=== PATIENT | female | born 1955 | race Caucasian/White ===

== ENCOUNTER 2019-02-10 17:52 | Inpatient (IN) ==
[2019-02-10] MEDS ORDERED: SODIUM CHLORIDE 0.9% 1,000 ML IV STA (18:53)
[2019-02-10 18:58] LABS: Apearance,Urine Slightly Hazy (Clear); Bacteria,Urine Occasional /HPF (Few); Bilirubin,Urine Negative (Negative); Blood, Urine Negative (Negative); Glucose,Urine (UA) Negative (Negative); Hyaline Casts,Urine 1 /LPF (0-3); Ketones,Urine 5 mg/dL (Negative); Mucus,Urine Occasional /LPF (Occasional); Nitrite,Urine Negative (Negative); Protein,Urine Negative; Squamous Epithelial Cell,Urine Few /HPF (0-10); Urine Color Amber (Yellow); Urine Specific Gravity 1.025 (1.001-1.035); WBC,Urine 1 /HPF (0-6)
[2019-02-10 19:10] LABS: Bilirubin,Total 2.5 MG/DL (0.2-1.0); Calcium 8.8 MG/DL (8.5-10.1); Osmolality,Calculated 275.7 MOS/KG (273-304); Total Protein 7.9 G/DL (6.4-8.3)
[2019-02-10 19:35] LABS: Basophils # 0.1 10*3/uL (0.0-0.2); Basophils % 0.6 % (0.0-0.8); Eosinophils # 0.3 10*3/uL (0.0-0.87); Eosinophils % 2.6 % (0.00-10.9); Hematocrit 32.2 VOL% (35.7-47.0); Hemoglobin 10.4 GM/DL (12.0-16.0); Immature Granulocytes % 0.9 %; Immature Granulocytes Absolute 0.09 #; Lymphocytes # 2.4 10*3/uL (1.4-4.0); Lymphocytes % 24.6 % (21.3-54.2); Mean Corpuscular HGB Conc 32.3 GM/DL (32-36); Mean Corpuscular Volume 101.6 FL (87-102); Mean Platelet Volume 10.7 FL (9.6-12.0); Monocytes % 8.6 % (1.7-12.7); Neutrophils % 62.7 % (38.7-73.9); Red Blood Count 3.17 MC/CUMM (3.8-5.5); Red Cell Distribution Width 14.6 % (9.3-17.3); White Blood Count 9.8 T/CUMM (4-12)
[2019-02-10 19:39] LABS: Platelet Count 3 T/CUMM (130-400)
[2019-02-10 19:52] LABS: Eosinophils 2 % (0-10); Lymphocytes 26 % (20-55); Segmented Neutrophils 64 % (50-85); Total Cells Counted 100
[2019-02-10 19:53] LABS: Hypochromasia 1+; Microcytosis Slight; Platelet Estimate Decreased
[2019-02-10] MEDS ORDERED: MORPHINE 4 MG/1 ML VIAL IV STA (20:25)
[2019-02-10] MEDS ORDERED: ONDANSETRON 4 MG/2 ML VIAL IV STA (20:25)
[2019-02-10] MEDS ORDERED: ONDANSETRON 4 MG/2 ML VIAL IV PRN (22:01)
[2019-02-10] MEDS ORDERED: DOCUSATE SODIUM 100 MG CAPSULE PO PRN (22:01)
[2019-02-10] MEDS ORDERED: diphenhydrAMINE CAP 25 MG CAPSULE PO PRN (22:14)
[2019-02-10] MEDS ORDERED: SIMVASTATIN 10 MG TABLET PO SCH (22:30)
[2019-02-10] MEDS ORDERED: NON-FORMULARY MEDICATION (Omeprazole 20 MG) PO SCH (22:30)
[2019-02-10] MEDS ORDERED: SODIUM CHLORIDE 0.9% 1,000 ML IV PRN (23:09)
[2019-02-10] MEDS: PANTOPRAZOLE 40 MG TABLET PO SCH (23:33)
[2019-02-10] MEDS: cephALEXin 500 MG CAPSULE PO SCH (23:33)
[2019-02-10] MEDS: tiZANidine 4 MG TABLET PO SCH (23:34)
[2019-02-10] MEDS: HYDROmorphone 2 MG/1 ML VIAL IV PRN (23:42)
[2019-02-11] MEDS: POTASSIUM CHLORIDE 20 MEQ TABLET PO PRN ×3 (00:35→04:37)
[2019-02-11 05:38] LABS: Basophils # 0.1 10*3/uL (0.0-0.2); Basophils % 0.9 % (0.0-0.8); Eosinophils # 0.2 10*3/uL (0.0-0.87); Eosinophils % 3.6 % (0.00-10.9); Hematocrit 28.2 VOL% (35.7-47.0); Hemoglobin 8.9 GM/DL (12.0-16.0); Immature Granulocytes % 1.4 %; Immature Granulocytes Absolute 0.09 #; Lymphocytes # 1.6 10*3/uL (1.4-4.0); Lymphocytes % 24.6 % (21.3-54.2); Mean Corpuscular HGB Conc 31.6 GM/DL (32-36); Mean Corpuscular Volume 104.1 FL (87-102); Monocytes % 8.8 % (1.7-12.7); Neutrophils % 60.7 % (38.7-73.9); Red Blood Count 2.71 MC/CUMM (3.8-5.5); Red Cell Distribution Width 14.8 % (9.3-17.3); White Blood Count 6.4 T/CUMM (4-12)
[2019-02-11 05:48] LABS: Platelet Count 5 T/CUMM (130-400)
[2019-02-11 05:56] LABS: Hypochromasia Slight; Microcytosis 1+; Platelet Estimate Decreased
[2019-02-11 05:57] LABS: Polychromasia Few
[2019-02-11] MEDS: cephALEXin 500 MG CAPSULE PO SCH (05:57)
[2019-02-11 05:59] LABS: Albumin 1.9 G/DL (3.4-5.0); Bilirubin,Total 2.6 MG/DL (0.2-1.0); Calcium 8.2 MG/DL (8.5-10.1); Osmolality,Calculated 280.3 MOS/KG (273-304); Risk Ratio 6.72; Total Protein 6.5 G/DL (6.4-8.3); VLDL CHOLESTEROL 18.6 MG/DL
[2019-02-11 06:55] LABS: Hepatitis B Core IgM Quant 0.09 Index; Hepatitis B Surface Ag Quant < 0.10 Index; Hepatitis B Surface Ag Result Negative (Negative); Hepatitis C Virus Ab Quant 0.15 Index; Hepatitis C Virus Ab Result Negative (Negative)
[2019-02-11 08:29] LABS: % Iron Saturation 56.3 % (18-50); Ferritin 273.9 ng/ml (8-252)
[2019-02-11 08:32] LABS: Folate 19.2 NG/ML (5.4-24.0); Vitamin B12 > 2000 PG/ML (211-911)
[2019-02-11 08:40] LABS: PT Patient Result 10.4 SECS; Partial Thromboplastin Time 30.3 SECS (0-40)
[2019-02-11] MEDS: CHOLECALCIFEROL 1,000 UNIT TABLET PO SCH (08:52)
[2019-02-11] MEDS: URSODIOL 300 MG CAPSULE PO SCH ×3 (08:52→20:20)
[2019-02-11] MEDS: PANTOPRAZOLE 40 MG TABLET PO SCH ×2 (08:52→20:20)
[2019-02-11] MEDS: CALCIUM (CARBONATE)/VITAMIN D 600 MG-400 UNIT TABLET PO SCH ×2 (08:52→17:24)
[2019-02-11] MEDS: DOCUSATE SODIUM 100 MG CAPSULE PO SCH (08:52)
[2019-02-11] MEDS: ASCORBIC ACID 500 MG TABLET PO SCH (08:52)
[2019-02-11] MEDS: CETIRIZINE 10 MG TABLET PO SCH (08:53)
[2019-02-11] MEDS: methylPREDNISolone SOD SUC 125 MG/2 ML VIAL IV SCH ×2 (08:54→20:20)
[2019-02-11] MEDS ORDERED: FERROUS SULFATE 325 MG TABLET PO SCH (09:00)
[2019-02-11] MEDS ORDERED: diphenhydrAMINE CAP 25 MG CAPSULE PO ONE (10:00)
[2019-02-11] MEDS ORDERED: SPIRONOLACTONE 50 MG TABLET PO SCH (11:00)
[2019-02-11] MEDS ORDERED: IMMUNE GLOBULIN 10% 20 GM, IMMUNE GLOBULIN 10% 10 GM in PREMIX 1 EACH IV ONE (11:00)
[2019-02-11] MEDS: FUROSEMIDE 20 MG TABLET PO SCH (11:59)
[2019-02-11] MEDS: HYDROmorphone 2 MG/1 ML VIAL IV PRN (12:28)
[2019-02-11] MEDS: tiZANidine 4 MG TABLET PO SCH (20:20)
[2019-02-12 05:55] LABS: Basophils % 0.2 % (0.0-0.8); Hematocrit 28.7 VOL% (35.7-47.0); Hemoglobin 9.3 GM/DL (12.0-16.0); Immature Granulocytes % 0.6 %; Immature Granulocytes Absolute 0.06 #; Lymphocytes % 10.7 % (21.3-54.2); Mean Corpuscular HGB Conc 32.4 GM/DL (32-36); Mean Corpuscular Volume 102.1 FL (87-102); Mean Platelet Volume 12.4 FL (9.6-12.0); Monocytes % 1.6 % (1.7-12.7); Neutrophils % 86.9 % (38.7-73.9); Red Blood Count 2.81 MC/CUMM (3.8-5.5); Red Cell Distribution Width 14.3 % (9.3-17.3); White Blood Count 9.5 T/CUMM (4-12)
[2019-02-12 06:00] LABS: Platelet Count 18 T/CUMM (130-400)
[2019-02-12 06:17] LABS: Anisocytosis 2+; Hypochromasia 2+; Microcytosis 2+; Platelet Estimate Decreased; Polychromasia Few
[2019-02-12 06:24] LABS: Albumin 1.9 G/DL (3.4-5.0); Bilirubin,Total 2.3 MG/DL (0.2-1.0); Calcium 8.7 MG/DL (8.5-10.1); Osmolality,Calculated 282.4 MOS/KG (273-304); Total Protein 7.3 G/DL (6.4-8.3)
[2019-02-12] MEDS ORDERED: methylPREDNISolone SOD SUC 125 MG/2 ML VIAL IV ONE (07:47)
[2019-02-12] MEDS ORDERED: SODIUM CHLORIDE 0.9% 1,000 ML IV PRN (07:48)
[2019-02-12] MEDS ORDERED: IMMUNE GLOBULIN 10% 20 GM in PREMIX 1 EACH IV ONE (09:00)
[2019-02-12] MEDS ORDERED: predniSONE 20 MG TABLET PO SCH (09:00)
[2019-02-12] MEDS: URSODIOL 300 MG CAPSULE PO SCH ×3 (09:34→20:36)
[2019-02-12] MEDS: FUROSEMIDE 20 MG TABLET PO SCH (09:34)
[2019-02-12] MEDS: DOCUSATE SODIUM 100 MG CAPSULE PO SCH (09:34)
[2019-02-12] MEDS: CHOLECALCIFEROL 1,000 UNIT TABLET PO SCH (09:38)
[2019-02-12] MEDS: CALCIUM (CARBONATE)/VITAMIN D 600 MG-400 UNIT TABLET PO SCH ×2 (09:38→16:14)
[2019-02-12] MEDS: SPIRONOLACTONE 50 MG TABLET PO SCH ×2 (09:39→20:36)
[2019-02-12] MEDS: ASCORBIC ACID 500 MG TABLET PO SCH (09:39)
[2019-02-12] MEDS: CETIRIZINE 10 MG TABLET PO SCH (09:41)
[2019-02-12] MEDS: PANTOPRAZOLE 40 MG TABLET PO SCH ×2 (10:14→20:36)
[2019-02-12] MEDS: HYDROmorphone 2 MG/1 ML VIAL IV PRN ×2 (16:21→23:47)
[2019-02-12] MEDS: tiZANidine 4 MG TABLET PO SCH (20:36)
[2019-02-13 06:12] LABS: Basophils % 0.1 % (0.0-0.8); Immature Granulocytes % 0.7 %; Immature Granulocytes Absolute 0.09 #; Lymphocytes # 1.3 10*3/uL (1.4-4.0); Lymphocytes % 9.8 % (21.3-54.2); Mean Corpuscular HGB Conc 32.1 GM/DL (32-36); Mean Corpuscular Volume 102.2 FL (87-102); Mean Platelet Volume 12.3 FL (9.6-12.0); Monocytes % 4.7 % (1.7-12.7); Neutrophils % 84.7 % (38.7-73.9); Red Blood Count 2.74 MC/CUMM (3.8-5.5); Red Cell Distribution Width 14.7 % (9.3-17.3); White Blood Count 13.3 T/CUMM (4-12)
[2019-02-13 06:14] LABS: Platelet Count 70 T/CUMM (130-400)
[2019-02-13 06:43] LABS: Microcytosis 1+
[2019-02-13 06:44] LABS: Platelet Estimate Decreased; Polychromasia Slight
[2019-02-13 06:45] LABS: Hypochromasia 1+
[2019-02-13 06:46] LABS: Calcium 8.6 MG/DL (8.5-10.1); Osmolality,Calculated 282.5 MOS/KG (273-304)
[2019-02-13] MEDS: SPIRONOLACTONE 50 MG TABLET PO SCH ×2 (09:27→21:50)
[2019-02-13] MEDS: ASCORBIC ACID 500 MG TABLET PO SCH (09:27)
[2019-02-13] MEDS: CALCIUM (CARBONATE)/VITAMIN D 600 MG-400 UNIT TABLET PO SCH ×2 (09:28→17:23)
[2019-02-13] MEDS: predniSONE 20 MG TABLET PO SCH (09:28)
[2019-02-13] MEDS: CHOLECALCIFEROL 1,000 UNIT TABLET PO SCH (09:28)
[2019-02-13] MEDS: URSODIOL 300 MG CAPSULE PO SCH ×3 (09:29→21:50)
[2019-02-13] MEDS: PANTOPRAZOLE 40 MG TABLET PO SCH ×2 (09:29→21:49)
[2019-02-13] MEDS: DOCUSATE SODIUM 100 MG CAPSULE PO SCH (09:29)
[2019-02-13] MEDS: FUROSEMIDE 20 MG TABLET PO SCH (09:29)
[2019-02-13] MEDS: CETIRIZINE 10 MG TABLET PO SCH (09:35)
[2019-02-13 15:53] LABS: Neutrophils,Peritoneal Fluid 36 %; RBC,Peritoneal Fluid 2051 T/CUMM
[2019-02-13] MEDS: tiZANidine 4 MG TABLET PO SCH (21:49)
[2019-02-14] MEDS: CETIRIZINE 10 MG TABLET PO SCH (08:13)
[2019-02-14] MEDS: FUROSEMIDE 20 MG TABLET PO SCH (08:13)
[2019-02-14] MEDS: CALCIUM (CARBONATE)/VITAMIN D 600 MG-400 UNIT TABLET PO SCH (08:14)
[2019-02-14] MEDS: PANTOPRAZOLE 40 MG TABLET PO SCH (08:14)
[2019-02-14] MEDS: DOCUSATE SODIUM 100 MG CAPSULE PO SCH (08:14)
[2019-02-14] MEDS: ASCORBIC ACID 500 MG TABLET PO SCH (08:14)
[2019-02-14] MEDS: CHOLECALCIFEROL 1,000 UNIT TABLET PO SCH (08:14)
[2019-02-14] MEDS: predniSONE 20 MG TABLET PO SCH (08:14)
[2019-02-14] MEDS: URSODIOL 300 MG CAPSULE PO SCH (08:14)
[2019-02-14] MEDS: SPIRONOLACTONE 50 MG TABLET PO SCH (08:15)
[2019-02-14 11:02] VITALS: BP 133/58
== END 2019-02-14 15:14 | disposition home or self-care (01) | DRG 813 ==
LOC: EDBD → N.EDINP 17:52 → N.ED 17:52 → N.3E 21:16
PROVIDERS: ADMIT Internal Medicine; ATTEND Internal Medicine

== ENCOUNTER 2019-11-01 07:09 | Inpatient (IN) ==
[2019-11-01] MEDS ORDERED: ONDANSETRON 4 MG/2 ML VIAL IV STA ×3 (07:45→11:27)
[2019-11-01] MEDS ORDERED: SODIUM CHLORIDE 0.9% 1,000 ML IV STA ×2 (07:45→12:15)
[2019-11-01 08:24] LABS: Basophils % 0.5 % (0.0-0.8); Eosinophils # 0.1 10*3/uL (0.0-0.87); Hematocrit 44.3 VOL% (35.7-47.0); Hemoglobin 14.6 GM/DL (12.0-16.0); Immature Granulocytes % 0.6 %; Immature Granulocytes Absolute 0.04 #; Lymphocytes # 0.5 10*3/uL (1.4-4.0); Lymphocytes % 8.6 % (21.3-54.2); Mean Corpuscular Volume 96.1 FL (87-102); Mean Platelet Volume 9.8 FL (9.6-12.0); Neutrophils % 81.3 % (38.7-73.9); Platelet Count 147 T/CUMM (130-400); Red Blood Count 4.61 MC/CUMM (3.8-5.5); Red Cell Distribution Width 13.1 % (9.3-17.3); White Blood Count 6.2 T/CUMM (4-12)
[2019-11-01 08:48] LABS: Albumin 1.9 G/DL (3.4-5.0); Bilirubin,Total 1.8 MG/DL (0.2-1.0); Calcium 9.1 MG/DL (8.5-10.1); Osmolality,Calculated 274.4 MOS/KG (273-304); Total Protein 7.4 G/DL (6.4-8.3)
[2019-11-01] MEDS ORDERED: HYDROmorphone 2 MG/1 ML VIAL IV STA (09:26)
[2019-11-01] MEDS ORDERED: SODIUM CHLORIDE 0.9% 500 ML IV STA (12:10)
[2019-11-01] MEDS ORDERED: MAGNESIUM SULF RIDER 4 GM in PREMIX 1 EACH IV PRN ×2 (12:38→14:53)
[2019-11-01] MEDS ORDERED: MAGNESIUM SULF RIDER 2 GM in PREMIX 1 EACH IV PRN ×2 (12:38→14:53)
[2019-11-01] MEDS ORDERED: GLUCAGON 1 MG VIAL IM PRN (12:41)
[2019-11-01] MEDS ORDERED: DEXTROSE 50% 25 GM/50 ML VIAL IV PRN (12:41)
[2019-11-01] MEDS ORDERED: PROMETHAZINE 25 MG/1 ML VIAL IM PRN (12:41)
[2019-11-01] MEDS ORDERED: ALBUTEROL/IPRATROPIUM 3 ML NEB RESP TX SCH (13:00)
[2019-11-01] MEDS ORDERED: SCOPOLAMINE 1.5 MG PATCH TRANSDERM ONE ×2 (14:24→22:30)
[2019-11-01] MEDS ORDERED: chlorproMAZINE INJ 25 MG in SODIUM CHLORIDE 0.9% 100 ML IV PRN (14:25)
[2019-11-01 15:04] LABS: Risk Ratio 5.24; VLDL CHOLESTEROL 25.8 MG/DL
[2019-11-01 15:38] LABS: PT Patient Result 10.8 SECS (9.8-11.9)
[2019-11-01 17:16] LABS: ABG Base Excess -4.2 MMOL/L (-2.5-2.5); ABG Oxygen Saturation 98.7 % (95-100); ABG PCO2 32.1 MM HG (35-48); ABG PH 7.397 (7.35-7.45); ABG TCO2 17.6 MMOL/L (23-27)
[2019-11-01] MEDS: SODIUM CHLORIDE 0.9% 1,000 ML IV SCH (19:45)
[2019-11-01] MEDS: ONDANSETRON 4 MG/2 ML VIAL IV PRN (22:30)
[2019-11-02 03:06] LABS: Apearance,Urine CLOUDY (Clear); Bacteria,Urine Many /HPF (Few); Blood, Urine Moderate mg/dL (Negative); Glucose,Urine (UA) Negative (Negative); Ketones,Urine 5 mg/dL (Negative); Nitrite,Urine Negative (Negative); Protein,Urine 100 MG/DL; RBC,Urine 23 /HPF (0-4); Squamous Epithelial Cell,Urine Occasional /HPF (0-10); Urine Color Amber (Yellow); Urine Specific Gravity 1.021 (1.001-1.035); WBC,Urine 204 /HPF (0-6)
[2019-11-02 03:07] LABS: Bilirubin,Urine Small mg/dL (Negative)
[2019-11-02 05:26] LABS: Basophils % 0.3 % (0.0-0.8); Eosinophils # 0.1 10*3/uL (0.0-0.87); Eosinophils % 0.6 % (0.00-10.9); Hematocrit 31.6 VOL% (35.7-47.0); Hemoglobin 10.1 GM/DL (12.0-16.0); Immature Granulocytes % 0.6 %; Immature Granulocytes Absolute 0.06 #; Lymphocytes % 8.7 % (21.3-54.2); Mean Corpuscular Volume 99.4 FL (87-102); Monocytes % 6.7 % (1.7-12.7); Neutrophils % 83.1 % (38.7-73.9); Platelet Count 180 T/CUMM (130-400); Red Blood Count 3.18 MC/CUMM (3.8-5.5); Red Cell Distribution Width 13.2 % (9.3-17.3); White Blood Count 10.9 T/CUMM (4-12)
[2019-11-02 05:54] LABS: Albumin 1.8 G/DL (3.4-5.0); Bilirubin,Total 1.2 MG/DL (0.2-1.0); Calcium 8.2 MG/DL (8.5-10.1); Osmolality,Calculated 286.7 MOS/KG (273-304); Total Protein 6.9 G/DL (6.4-8.3)
[2019-11-02 06:02] LABS: Risk Ratio 5.25; Thyroid Stimulating Hormone 4.16 uIU/ml (0.358-3.74)
[2019-11-02] MEDS: PANTOPRAZOLE 40 MG VIAL IV SCH (09:00)
[2019-11-02] MEDS: SODIUM CHLORIDE 0.9% 1,000 ML IV SCH (10:44)
[2019-11-02] MEDS: cefTRIAXone 1,000 MG in SYRINGE 1 EACH IV SCH (16:32)
[2019-11-03] MEDS: SODIUM CHLORIDE 0.9% 1,000 ML IV SCH ×3 (01:34→19:07)
[2019-11-03 06:09] LABS: Basophils % 0.3 % (0.0-0.8); Eosinophils # 0.3 10*3/uL (0.0-0.87); Eosinophils % 3.8 % (0.00-10.9); Hematocrit 32.1 VOL% (35.7-47.0); Hemoglobin 10.4 GM/DL (12.0-16.0); Immature Granulocytes % 0.3 %; Immature Granulocytes Absolute 0.03 #; Lymphocytes # 1.4 10*3/uL (1.4-4.0); Lymphocytes % 16.3 % (21.3-54.2); Mean Corpuscular HGB Conc 32.4 GM/DL (32-36); Mean Corpuscular Volume 97.3 FL (87-102); Mean Platelet Volume 10.7 FL (9.6-12.0); Monocytes % 7.1 % (1.7-12.7); Neutrophils % 72.2 % (38.7-73.9); Platelet Count 160 T/CUMM (130-400); Red Cell Distribution Width 13.3 % (9.3-17.3); White Blood Count 8.6 T/CUMM (4-12)
[2019-11-03 06:25] LABS: Albumin 1.7 G/DL (3.4-5.0); Bilirubin,Total 1.3 MG/DL (0.2-1.0); Calcium 8.2 MG/DL (8.5-10.1); Osmolality,Calculated 284.7 MOS/KG (273-304); Total Protein 6.6 G/DL (6.4-8.3)
[2019-11-03] MEDS: PANTOPRAZOLE 40 MG VIAL IV SCH (09:34)
[2019-11-03] MEDS: POTASSIUM CHLORIDE RIDER 10 MEQ in PREMIX 1 EACH IV PRN ×5 (09:35→17:14)
[2019-11-03] MEDS: cefTRIAXone 1,000 MG in SYRINGE 1 EACH IV SCH (15:26)
[2019-11-04 06:01] LABS: Basophils % 0.4 % (0.0-0.8); Eosinophils # 0.3 10*3/uL (0.0-0.87); Eosinophils % 4.2 % (0.00-10.9); Hemoglobin 10.6 GM/DL (12.0-16.0); Immature Granulocytes % 0.4 %; Immature Granulocytes Absolute 0.03 #; Lymphocytes # 1.1 10*3/uL (1.4-4.0); Lymphocytes % 15.2 % (21.3-54.2); Mean Corpuscular HGB Conc 32.1 GM/DL (32-36); Mean Corpuscular Volume 98.2 FL (87-102); Mean Platelet Volume 10.1 FL (9.6-12.0); Monocytes % 8.6 % (1.7-12.7); Neutrophils % 71.2 % (38.7-73.9); Platelet Count 136 T/CUMM (130-400); Red Blood Count 3.36 MC/CUMM (3.8-5.5); Red Cell Distribution Width 13.2 % (9.3-17.3); White Blood Count 7.1 T/CUMM (4-12)
[2019-11-04 06:22] LABS: Albumin 1.7 G/DL (3.4-5.0); Bilirubin,Total 1.2 MG/DL (0.2-1.0); Osmolality,Calculated 283.5 MOS/KG (273-304); Total Protein 6.3 G/DL (6.4-8.3)
[2019-11-04] MEDS: PANTOPRAZOLE 40 MG VIAL IV SCH (09:16)
[2019-11-04] MEDS: SODIUM CHLORIDE 0.9% 1,000 ML IV SCH ×2 (09:46→17:10)
[2019-11-04] MEDS: ONDANSETRON 4 MG/2 ML VIAL IV PRN ×2 (12:28→23:20)
[2019-11-04] MEDS: MEROPENEM 500 MG in SODIUM CHLORIDE 0.9% 100 ML IV SCH ×2 (14:04→21:20)
[2019-11-04] MEDS: traMADol 50 MG TABLET PO PRN ×2 (17:01→23:20)
[2019-11-05] MEDS: ONDANSETRON 4 MG/2 ML VIAL IV PRN (04:08)
[2019-11-05] MEDS: SODIUM CHLORIDE 0.9% 1,000 ML IV SCH ×2 (04:08→14:19)
[2019-11-05] MEDS: traMADol 50 MG TABLET PO PRN (05:35)
[2019-11-05] MEDS: MEROPENEM 500 MG in SODIUM CHLORIDE 0.9% 100 ML IV SCH ×3 (05:35→21:30)
[2019-11-05 06:30] LABS: Osmolality,Calculated 285.1 MOS/KG (273-304)
[2019-11-05] MEDS: PANTOPRAZOLE 40 MG VIAL IV SCH (09:26)
[2019-11-05] MEDS ORDERED: ALBUMIN 25% 25 GM in PREMIX 1 EACH IV ONE (12:00)
[2019-11-05] MEDS: SPIRONOLACTONE 50 MG TABLET PO SCH ×2 (13:14→20:22)
[2019-11-05 17:00] LABS: Neutrophils,Peritoneal Fluid 22 %
[2019-11-05 17:04] LABS: RBC,Peritoneal Fluid 67 T/CUMM
[2019-11-05 17:05] LABS: Total Protein,Peritoneal Fluid 1.5 G/DL
[2019-11-06] MEDS: MEROPENEM 500 MG in SODIUM CHLORIDE 0.9% 100 ML IV SCH ×3 (05:17→22:53)
[2019-11-06] MEDS: SODIUM CHLORIDE 0.9% 1,000 ML IV SCH (07:10)
[2019-11-06] MEDS: SPIRONOLACTONE 50 MG TABLET PO SCH ×2 (08:54→20:55)
[2019-11-06] MEDS: PANTOPRAZOLE 40 MG VIAL IV SCH (08:54)
[2019-11-06 11:34] LABS: Calcium 6.1 MG/DL (8.5-10.1); Osmolality,Calculated 282.1 MOS/KG (273-304)
[2019-11-06 11:45] LABS: Basophils % 0.5 % (0.0-0.8); Eosinophils # 0.3 10*3/uL (0.0-0.87); Eosinophils % 4.5 % (0.00-10.9); Hematocrit 26.1 VOL% (35.7-47.0); Immature Granulocytes % 0.7 %; Immature Granulocytes Absolute 0.04 #; Lymphocytes # 0.9 10*3/uL (1.4-4.0); Lymphocytes % 15.7 % (21.3-54.2); Mean Corpuscular HGB Conc 31.4 GM/DL (32-36); Mean Corpuscular Volume 101.2 FL (87-102); Mean Platelet Volume 10.3 FL (9.6-12.0); Monocytes % 11.9 % (1.7-12.7); Neutrophils % 66.7 % (38.7-73.9); Platelet Count 100 T/CUMM (130-400); Red Cell Distribution Width 13.2 % (9.3-17.3); White Blood Count 5.8 T/CUMM (4-12)
[2019-11-06] MEDS ORDERED: ALBUMIN 25% 25 GM in PREMIX 1 EACH IV ONE (12:00)
[2019-11-06 12:07] LABS: Red Blood Count 2.58 MC/CUMM (3.8-5.5)
[2019-11-06 12:08] LABS: Hemoglobin 8.2 GM/DL (12.0-16.0)
[2019-11-06 12:33] LABS: Platelet Estimate Adequate
[2019-11-06 12:34] LABS: Anisocytosis 2+; Macrocytosis 1+
[2019-11-06] MEDS: POTASSIUM CHLORIDE RIDER 10 MEQ in PREMIX 1 EACH IV PRN ×3 (15:34→21:11)
[2019-11-06] MEDS: traMADol 50 MG TABLET PO PRN (18:44)
[2019-11-07] MEDS: ONDANSETRON 4 MG/2 ML VIAL IV PRN (00:22)
[2019-11-07] MEDS: POTASSIUM CHLORIDE RIDER 10 MEQ in PREMIX 1 EACH IV PRN (00:23)
[2019-11-07 04:48] LABS: Basophils % 0.6 % (0.0-0.8); Eosinophils # 0.5 10*3/uL (0.0-0.87); Eosinophils % 6.8 % (0.00-10.9); Hemoglobin 9.6 GM/DL (12.0-16.0); Immature Granulocytes % 0.9 %; Immature Granulocytes Absolute 0.06 #; Lymphocytes # 1.3 10*3/uL (1.4-4.0); Lymphocytes % 18.4 % (21.3-54.2); Mean Corpuscular Volume 99.3 FL (87-102); Monocytes % 13.4 % (1.7-12.7); Neutrophils % 59.9 % (38.7-73.9); Platelet Count 107 T/CUMM (130-400); Red Blood Count 3.02 MC/CUMM (3.8-5.5); Red Cell Distribution Width 13.1 % (9.3-17.3)
[2019-11-07 04:58] LABS: Calcium 6.5 MG/DL (8.5-10.1); Osmolality,Calculated 275.5 MOS/KG (273-304)
[2019-11-07] MEDS: MEROPENEM 500 MG in SODIUM CHLORIDE 0.9% 100 ML IV SCH (06:53)
[2019-11-07] MEDS: SODIUM CHLORIDE 0.9% 1,000 ML IV SCH ×2 (06:53→08:08)
[2019-11-07] MEDS: SPIRONOLACTONE 50 MG TABLET PO SCH (08:10)
[2019-11-07] MEDS: PANTOPRAZOLE 40 MG VIAL IV SCH (08:10)
[2019-11-07] MEDS: traMADol 50 MG TABLET PO PRN (09:12)
[2019-11-07] MEDS ORDERED: FUROSEMIDE 20 MG TABLET PO SCH (11:00)
[2019-11-07] MEDS ORDERED: ERTAPENEM 1,000 MG in SODIUM CHLORIDE 0.9% 100 ML IV SCH (12:00)
[2019-11-07 12:17] VITALS: BP 129/72
== END 2019-11-07 14:50 | disposition home health service (06) | DRG 683 ==
LOC: N.ED 07:09 → SUATTDRO 12:41 → N.EDINP 12:41 → N.2E 16:08
PROVIDERS: ADMIT Internal Medicine; ATTEND Internal Medicine

== ENCOUNTER 2019-12-25 21:16 | Inpatient (IN) ==
[2019-12-25] MEDS ORDERED: SODIUM CHLORIDE 0.9% 500 ML IV STA ×2 (21:57→23:43)
[2019-12-25 22:32] LABS: Basophils % 0.3 % (0.0-0.8); Eosinophils % 0.7 % (0.00-10.9); Hematocrit 38.4 VOL% (35.7-47.0); Hemoglobin 12.3 GM/DL (12.0-16.0); Immature Granulocytes % 0.5 %; Immature Granulocytes Absolute 0.03 #; Lymphocytes # 0.6 10*3/uL (1.4-4.0); Lymphocytes % 10.9 % (21.3-54.2); Mean Corpuscular Volume 98.5 FL (87-102); Mean Platelet Volume 9.5 FL (9.6-12.0); Monocytes % 6.4 % (1.7-12.7); Neutrophils % 81.2 % (38.7-73.9); Platelet Count 186 T/CUMM (130-400); Red Cell Distribution Width 16.8 % (9.3-17.3); White Blood Count 5.8 T/CUMM (4-12)
[2019-12-25 22:49] LABS: INR 1.1; PT Patient Result 11.4 SECS (9.8-11.9); Partial Thromboplastin Time 33.6 SECS (23.9-33.8)
[2019-12-25 23:11] LABS: Albumin 1.5 G/DL (3.4-5.0); Bilirubin,Total 3.4 MG/DL (0.2-1.0); Calcium 8.6 MG/DL (8.5-10.1); Osmolality,Calculated 268.7 MOS/KG (273-304); Total Protein 7.2 G/DL (6.4-8.3)
[2019-12-26] MEDS ORDERED: ALBUMIN 5% 50 GM in PREMIX 1 EACH IV ONE (00:11)
[2019-12-26] MEDS ORDERED: ALBUMIN 25% 50 GM in PREMIX 1 EACH IV ONE (00:30)
[2019-12-26] MEDS: ONDANSETRON 4 MG/2 ML VIAL IV PRN (03:00)
[2019-12-26] MEDS ORDERED: LACTULOSE 20 GM/30 ML UDCUP PO PRN (04:04)
[2019-12-26] MEDS ORDERED: PROMETHAZINE 25 MG/1 ML VIAL IM PRN (04:04)
[2019-12-26] MEDS ORDERED: ALBUTEROL 2.5 MG/3 ML NEB RESP TX PRN (04:04)
[2019-12-26] MEDS: LACTATED RINGERS 1,000 ML IV SCH ×2 (04:27→14:59)
[2019-12-26] MEDS: CIPROFLOXACIN INJ 400 MG in PREMIX 1 EACH IV SCH ×2 (04:45→22:41)
[2019-12-26] MEDS: ALBUMIN 5% 12.5 GM in PREMIX 1 EACH IV SCH ×2 (08:24→15:33)
[2019-12-26] MEDS: PANTOPRAZOLE 40 MG VIAL IV SCH (10:34)
[2019-12-26] MEDS ORDERED: NOREPINEPHRINE 4 MG/4 ML VIAL IV ONE (11:31)
[2019-12-26] MEDS ORDERED: NOREPINEPHRINE 8 MG in SODIUM CHLORIDE 0.9% 242 ML IV PRN (11:42)
[2019-12-27] MEDS: ALBUMIN 5% 12.5 GM in PREMIX 1 EACH IV SCH ×3 (00:59→15:18)
[2019-12-27] MEDS: LACTATED RINGERS 1,000 ML IV SCH (03:10)
[2019-12-27 04:12] LABS: Basophils % 0.2 % (0.0-0.8); Eosinophils # 0.2 10*3/uL (0.0-0.87); Hematocrit 23.6 VOL% (35.7-47.0); Immature Granulocytes % 0.9 %; Immature Granulocytes Absolute 0.05 #; Lymphocytes # 0.7 10*3/uL (1.4-4.0); Lymphocytes % 12.5 % (21.3-54.2); Mean Corpuscular HGB Conc 33.1 GM/DL (32-36); Mean Corpuscular Volume 97.5 FL (87-102); Mean Platelet Volume 9.4 FL (9.6-12.0); Monocytes % 13.5 % (1.7-12.7); Neutrophils % 69.9 % (38.7-73.9); Red Blood Count 2.42 MC/CUMM (3.8-5.5); Red Cell Distribution Width 16.7 % (9.3-17.3); White Blood Count 5.3 T/CUMM (4-12)
[2019-12-27 04:13] LABS: Hemoglobin 7.8 GM/DL (12.0-16.0); Platelet Count 137 T/CUMM (130-400)
[2019-12-27 04:39] LABS: Alanine Aminotransferase < 9 U/L (13-56); Albumin 2.3 G/DL (3.4-5.0); Alkaline Phosphatase 43 U/L (45-117); Aspartate Amino Transferase 20 U/L (0-37); Blood Urea Nitrogen 31 MG/DL (7-18); Calcium 8.1 MG/DL (8.5-10.1); Estimated Glom Filtration Rate 25 ML/MIN; Glucose 78 MG/DL (74-106); Osmolality,Calculated 280.7 MOS/KG (273-304); Total Protein 5.9 G/DL (6.4-8.3)
[2019-12-27 05:27] LABS: Hypochromasia 2+; Platelet Estimate Normal
[2019-12-27] MEDS: POTASSIUM CHLORIDE RIDER 10 MEQ in PREMIX 1 EACH IV PRN ×6 (06:11→22:06)
[2019-12-27] MEDS: PANTOPRAZOLE 40 MG VIAL IV SCH (08:25)
[2019-12-27] MEDS: CIPROFLOXACIN INJ 400 MG in PREMIX 1 EACH IV SCH (16:35)
[2019-12-28] MEDS: ALBUMIN 5% 12.5 GM in PREMIX 1 EACH IV SCH ×3 (00:02→15:50)
[2019-12-28] MEDS: MORPHINE 4 MG/1 ML VIAL IV PRN (04:35)
[2019-12-28] MEDS: LACTATED RINGERS 1,000 ML IV SCH (06:15)
[2019-12-28 06:22] LABS: Basophils % 0.5 % (0.0-0.8); Eosinophils # 0.3 10*3/uL (0.0-0.87); Eosinophils % 5.5 % (0.00-10.9); Hematocrit 26.3 VOL% (35.7-47.0); Hemoglobin 8.2 GM/DL (12.0-16.0); Immature Granulocytes % 0.7 %; Immature Granulocytes Absolute 0.04 #; Lymphocytes # 0.9 10*3/uL (1.4-4.0); Lymphocytes % 15.8 % (21.3-54.2); Mean Corpuscular HGB Conc 31.2 GM/DL (32-36); Mean Corpuscular Volume 101.9 FL (87-102); Mean Platelet Volume 9.4 FL (9.6-12.0); Monocytes % 10.5 % (1.7-12.7); Platelet Count 133 T/CUMM (130-400); Red Blood Count 2.58 MC/CUMM (3.8-5.5); White Blood Count 5.6 T/CUMM (4-12)
[2019-12-28 06:51] LABS: Albumin 2.7 G/DL (3.4-5.0); Bilirubin,Total 2.6 MG/DL (0.2-1.0); Calcium 8.5 MG/DL (8.5-10.1); Osmolality,Calculated 277.7 MOS/KG (273-304); Total Protein 6.4 G/DL (6.4-8.3)
[2019-12-28] MEDS: PANTOPRAZOLE 40 MG VIAL IV SCH (08:33)
[2019-12-28] MEDS: CIPROFLOXACIN INJ 400 MG in PREMIX 1 EACH IV SCH (11:21)
[2019-12-28] MEDS: prednisoLONE ACETATE 1% OPH SUSP 5 ML BOTTLE RIGHT EYE SCH ×3 (14:59→21:29)
[2019-12-28] MEDS: KETOROLAC 0.5% OPH SOLN 5 ML BOTTLE RIGHT EYE SCH ×3 (14:59→21:29)
[2019-12-28] MEDS: OFLOXACIN 0.3% OPH SOLN 5 ML BOTTLE RIGHT EYE SCH ×3 (14:59→21:29)
[2019-12-29] MEDS: ALBUMIN 5% 12.5 GM in PREMIX 1 EACH IV SCH ×4 (01:15→23:09)
[2019-12-29] MEDS: CIPROFLOXACIN INJ 400 MG in PREMIX 1 EACH IV SCH ×2 (04:05→22:03)
[2019-12-29 06:12] LABS: Basophils % 0.6 % (0.0-0.8); Eosinophils # 0.2 10*3/uL (0.0-0.87); Eosinophils % 4.4 % (0.00-10.9); Hematocrit 23.8 VOL% (35.7-47.0); Hemoglobin 7.6 GM/DL (12.0-16.0); Immature Granulocytes % 0.6 %; Immature Granulocytes Absolute 0.03 #; Lymphocytes # 0.8 10*3/uL (1.4-4.0); Lymphocytes % 16.5 % (21.3-54.2); Mean Corpuscular HGB Conc 31.9 GM/DL (32-36); Mean Corpuscular Volume 100.8 FL (87-102); Mean Platelet Volume 9.1 FL (9.6-12.0); Monocytes % 12.7 % (1.7-12.7); Neutrophils % 65.2 % (38.7-73.9); Platelet Count 109 T/CUMM (130-400); Red Blood Count 2.36 MC/CUMM (3.8-5.5); Red Cell Distribution Width 16.7 % (9.3-17.3)
[2019-12-29 06:36] LABS: Alanine Aminotransferase < 9 U/L (13-56); Albumin 2.6 G/DL (3.4-5.0); Alkaline Phosphatase 36 U/L (45-117); Aspartate Amino Transferase 15 U/L (0-37); Blood Urea Nitrogen 17 MG/DL (7-18); Calcium 8.4 MG/DL (8.5-10.1); Estimated Glom Filtration Rate 46 ML/MIN; Glucose 112 MG/DL (74-106); Osmolality,Calculated 275.8 MOS/KG (273-304)
[2019-12-29 06:40] LABS: Eosinophils 9 % (0-10); Lymphocytes 10 % (20-55); Platelet Estimate Decreased; Segmented Neutrophils 74 % (50-85); Total Cells Counted 100
[2019-12-29 06:41] LABS: Hypochromasia 2+
[2019-12-29] MEDS: prednisoLONE ACETATE 1% OPH SUSP 5 ML BOTTLE RIGHT EYE SCH ×4 (08:48→20:48)
[2019-12-29] MEDS: KETOROLAC 0.5% OPH SOLN 5 ML BOTTLE RIGHT EYE SCH ×4 (08:48→20:48)
[2019-12-29] MEDS: OFLOXACIN 0.3% OPH SOLN 5 ML BOTTLE RIGHT EYE SCH ×4 (08:48→20:48)
[2019-12-29] MEDS: PANTOPRAZOLE 40 MG VIAL IV SCH (08:48)
[2019-12-29] MEDS: POTASSIUM CHLORIDE RIDER 10 MEQ in PREMIX 1 EACH IV PRN ×5 (08:49→12:56)
[2019-12-29] MEDS: MORPHINE 4 MG/1 ML VIAL IV PRN ×2 (12:57→21:57)
[2019-12-29] MEDS: HYOSCYAMINE 0.125 MG TABLET PO PRN (18:40)
[2019-12-30 08:39] LABS: Basophils % 0.7 % (0.0-0.8); Eosinophils # 0.3 10*3/uL (0.0-0.87); Eosinophils % 5.8 % (0.00-10.9); Hematocrit 27.4 VOL% (35.7-47.0); Hemoglobin 8.5 GM/DL (12.0-16.0); Immature Granulocytes % 0.9 %; Immature Granulocytes Absolute 0.05 #; Lymphocytes # 0.9 10*3/uL (1.4-4.0); Lymphocytes % 15.5 % (21.3-54.2); Mean Platelet Volume 9.3 FL (9.6-12.0); Monocytes % 13.4 % (1.7-12.7); Neutrophils % 63.7 % (38.7-73.9); Platelet Count 92 T/CUMM (130-400); Red Blood Count 2.66 MC/CUMM (3.8-5.5); Red Cell Distribution Width 16.3 % (9.3-17.3); White Blood Count 5.7 T/CUMM (4-12)
[2019-12-30 08:53] LABS: Calcium 8.7 MG/DL (8.5-10.1)
[2019-12-30 09:00] LABS: Eosinophils 3 % (0-10); Hypochromasia 1+; Lymphocytes 21 % (20-55); Platelet Estimate Decreased; Segmented Neutrophils 64 % (50-85); Total Cells Counted 100
[2019-12-30] MEDS: ALBUMIN 5% 12.5 GM in PREMIX 1 EACH IV SCH ×3 (09:30→23:32)
[2019-12-30] MEDS: prednisoLONE ACETATE 1% OPH SUSP 5 ML BOTTLE RIGHT EYE SCH ×4 (09:30→20:30)
[2019-12-30] MEDS: KETOROLAC 0.5% OPH SOLN 5 ML BOTTLE RIGHT EYE SCH ×4 (09:30→20:30)
[2019-12-30] MEDS: OFLOXACIN 0.3% OPH SOLN 5 ML BOTTLE RIGHT EYE SCH ×4 (09:30→20:30)
[2019-12-30] MEDS: PANTOPRAZOLE 40 MG VIAL IV SCH (10:00)
[2019-12-30 15:08] LABS: Neutrophils,Peritoneal Fluid 8 %; RBC,Peritoneal Fluid 3007 T/CUMM
[2019-12-30] MEDS: HYOSCYAMINE 0.125 MG TABLET PO PRN ×2 (15:48→20:29)
[2019-12-30] MEDS: CIPROFLOXACIN INJ 400 MG in PREMIX 1 EACH IV SCH (18:30)
[2019-12-31] MEDS: HYOSCYAMINE 0.125 MG TABLET PO PRN ×2 (01:59→10:26)
[2019-12-31 05:12] LABS: Basophils % 0.5 % (0.0-0.8); Eosinophils # 0.3 10*3/uL (0.0-0.87); Eosinophils % 4.1 % (0.00-10.9); Hematocrit 23.7 VOL% (35.7-47.0); Hemoglobin 7.5 GM/DL (12.0-16.0); Immature Granulocytes % 0.8 %; Immature Granulocytes Absolute 0.05 #; Lymphocytes # 1.2 10*3/uL (1.4-4.0); Lymphocytes % 18.9 % (21.3-54.2); Mean Corpuscular HGB Conc 31.6 GM/DL (32-36); Mean Corpuscular Volume 100.9 FL (87-102); Mean Platelet Volume 9.5 FL (9.6-12.0); Monocytes % 13.7 % (1.7-12.7); Red Blood Count 2.35 MC/CUMM (3.8-5.5); Red Cell Distribution Width 15.9 % (9.3-17.3); White Blood Count 6.1 T/CUMM (4-12)
[2019-12-31 05:16] LABS: Platelet Count 86 T/CUMM (130-400)
[2019-12-31 05:21] LABS: Calcium 7.7 MG/DL (8.5-10.1)
[2019-12-31 06:18] LABS: Eosinophils 2 % (0-10); Hypochromasia 2+; Lymphocytes 26 % (20-55); Microcytosis 1+; Platelet Estimate Decreased; Segmented Neutrophils 66 % (50-85); Total Cells Counted 100
[2019-12-31] MEDS ORDERED: POTASSIUM CHLORIDE 20 MEQ TABLET PO ONE (08:20)
[2019-12-31] MEDS: ALBUMIN 5% 12.5 GM in PREMIX 1 EACH IV SCH (09:37)
[2019-12-31] MEDS: OFLOXACIN 0.3% OPH SOLN 5 ML BOTTLE RIGHT EYE SCH ×4 (09:37→20:29)
[2019-12-31] MEDS: PANTOPRAZOLE 40 MG VIAL IV SCH (09:38)
[2019-12-31] MEDS: prednisoLONE ACETATE 1% OPH SUSP 5 ML BOTTLE RIGHT EYE SCH ×4 (09:38→20:28)
[2019-12-31] MEDS: ONDANSETRON 4 MG/2 ML VIAL IV PRN ×2 (09:38→19:35)
[2019-12-31] MEDS: KETOROLAC 0.5% OPH SOLN 5 ML BOTTLE RIGHT EYE SCH ×4 (09:38→20:28)
[2019-12-31] MEDS: CIPROFLOXACIN INJ 400 MG in PREMIX 1 EACH IV SCH ×2 (10:26→20:28)
[2019-12-31] MEDS: MORPHINE 4 MG/1 ML VIAL IV PRN (18:05)
[2020-01-01 04:44] LABS: Basophils % 0.6 % (0.0-0.8); Eosinophils # 0.2 10*3/uL (0.0-0.87); Eosinophils % 3.4 % (0.00-10.9); Hematocrit 23.4 VOL% (35.7-47.0); Hemoglobin 7.5 GM/DL (12.0-16.0); Immature Granulocytes % 0.6 %; Immature Granulocytes Absolute 0.04 #; Lymphocytes # 1.1 10*3/uL (1.4-4.0); Lymphocytes % 16.8 % (21.3-54.2); Mean Corpuscular HGB Conc 32.1 GM/DL (32-36); Mean Corpuscular Volume 100.9 FL (87-102); Mean Platelet Volume 9.7 FL (9.6-12.0); Monocytes % 12.6 % (1.7-12.7); Red Blood Count 2.32 MC/CUMM (3.8-5.5); Red Cell Distribution Width 16.1 % (9.3-17.3); White Blood Count 6.8 T/CUMM (4-12)
[2020-01-01 04:56] LABS: Platelet Count 88 T/CUMM (130-400)
[2020-01-01 05:13] LABS: Calcium 7.7 MG/DL (8.5-10.1); Osmolality,Calculated 272.7 MOS/KG (273-304)
[2020-01-01 06:16] LABS: Hypochromasia 1+; Platelet Estimate Decreased
[2020-01-01] MEDS: PANTOPRAZOLE 40 MG VIAL IV SCH (08:06)
[2020-01-01] MEDS: CIPROFLOXACIN INJ 400 MG in PREMIX 1 EACH IV SCH ×2 (08:06→20:33)
[2020-01-01] MEDS: KETOROLAC 0.5% OPH SOLN 5 ML BOTTLE RIGHT EYE SCH ×4 (08:09→20:33)
[2020-01-01] MEDS: OFLOXACIN 0.3% OPH SOLN 5 ML BOTTLE RIGHT EYE SCH ×4 (08:10→20:33)
[2020-01-01] MEDS: prednisoLONE ACETATE 1% OPH SUSP 5 ML BOTTLE RIGHT EYE SCH ×4 (08:10→20:33)
[2020-01-01] MEDS ORDERED: propofoL 200 MG/20 ML VIAL IV ONE (09:00)
[2020-01-01] MEDS ORDERED: ETOMIDATE 20 MG/10 ML VIAL IV ONE (09:00)
[2020-01-01] MEDS ORDERED: PHENYLEPHRINE 1 MG/10 ML SYRINGE IV ONE (09:00)
[2020-01-01] MEDS ORDERED: LIDOCAINE 2% 5 ML VIAL ONE (09:00)
[2020-01-01] MEDS: LACTATED RINGERS 1,000 ML IV SCH (10:34)
[2020-01-01] MEDS: HYOSCYAMINE 0.125 MG TABLET PO PRN (20:32)
[2020-01-02 05:49] LABS: Basophils % 0.7 % (0.0-0.8); Eosinophils # 0.3 10*3/uL (0.0-0.87); Eosinophils % 4.2 % (0.00-10.9); Hematocrit 24.7 VOL% (35.7-47.0); Hemoglobin 7.6 GM/DL (12.0-16.0); Immature Granulocytes % 0.5 %; Immature Granulocytes Absolute 0.03 #; Lymphocytes # 0.9 10*3/uL (1.4-4.0); Lymphocytes % 15.8 % (21.3-54.2); Mean Corpuscular HGB Conc 30.8 GM/DL (32-36); Mean Corpuscular Volume 102.1 FL (87-102); Mean Platelet Volume 9.8 FL (9.6-12.0); Monocytes % 11.7 % (1.7-12.7); Neutrophils % 67.1 % (38.7-73.9); Platelet Count 94 T/CUMM (130-400); Red Blood Count 2.42 MC/CUMM (3.8-5.5); Red Cell Distribution Width 15.7 % (9.3-17.3); White Blood Count 5.9 T/CUMM (4-12)
[2020-01-02 06:05] LABS: Calcium 7.7 MG/DL (8.5-10.1); Osmolality,Calculated 272.8 MOS/KG (273-304)
[2020-01-02 07:40] LABS: Band Neutrophils 1 % (0-10); Eosinophils 2 % (0-10); Lymphocytes 9 % (20-55); Segmented Neutrophils 77 % (50-85); Total Cells Counted 100
[2020-01-02 07:41] LABS: Ovalocytes Slight; Platelet Estimate Adequate; Polychromasia Slight
[2020-01-02] MEDS ORDERED: LACTATED RINGERS 1,000 ML IV SCH (08:00)
[2020-01-02] MEDS: CIPROFLOXACIN INJ 400 MG in PREMIX 1 EACH IV SCH (09:24)
[2020-01-02] MEDS: PANTOPRAZOLE 40 MG VIAL IV SCH (09:24)
[2020-01-02] MEDS: HYOSCYAMINE 0.125 MG TABLET PO PRN (09:29)
[2020-01-02] MEDS: prednisoLONE ACETATE 1% OPH SUSP 5 ML BOTTLE RIGHT EYE SCH ×2 (09:37→14:41)
[2020-01-02] MEDS: OFLOXACIN 0.3% OPH SOLN 5 ML BOTTLE RIGHT EYE SCH ×2 (09:38→14:41)
[2020-01-02] MEDS: KETOROLAC 0.5% OPH SOLN 5 ML BOTTLE RIGHT EYE SCH ×2 (09:38→14:41)
[2020-01-02] MEDS: ONDANSETRON 4 MG/2 ML VIAL IV PRN (10:44)
[2020-01-02 12:40] VITALS: BP 109/64
[2020-01-02] MEDS: LACTATED RINGERS 1,000 ML IV SCH (14:42)
== END 2020-01-02 14:18 | disposition home or self-care (01) | DRG 441 ==
LOC: N.ED 21:16 → N.EDINP 12-26 01:29 → SUATTDRO 12-26 01:29 → N.ICU 12-26 13:41 → N.4E 12-28 15:43
PROVIDERS: ADMIT Internal Medicine; ATTEND Family Medicine

== ENCOUNTER 2020-01-11 12:34 | Inpatient (IN) ==
[2020-01-11] MEDS ORDERED: SODIUM CHLORIDE 0.9% 500 ML IV STA (13:20)
[2020-01-11 14:07] LABS: Basophils % 0.4 % (0.0-0.8); Eosinophils # 0.2 10*3/uL (0.0-0.87); Eosinophils % 4.4 % (0.00-10.9); Hematocrit 26.1 VOL% (35.7-47.0); Hemoglobin 8.4 GM/DL (12.0-16.0); Immature Granulocytes % 0.4 %; Immature Granulocytes Absolute 0.02 #; Lymphocytes # 1.2 10*3/uL (1.4-4.0); Lymphocytes % 26.2 % (21.3-54.2); Mean Corpuscular HGB Conc 32.2 GM/DL (32-36); Mean Corpuscular Volume 98.1 FL (87-102); Mean Platelet Volume 9.7 FL (9.6-12.0); Monocytes % 10.8 % (1.7-12.7); Neutrophils % 57.8 % (38.7-73.9); Platelet Count 208 T/CUMM (130-400); Red Blood Count 2.66 MC/CUMM (3.8-5.5); Red Cell Distribution Width 15.7 % (9.3-17.3); White Blood Count 4.7 T/CUMM (4-12)
[2020-01-11 14:33] LABS: Albumin 2.5 G/DL (3.4-5.0); Bilirubin,Total 5.6 MG/DL (0.2-1.0); Osmolality,Calculated 279.8 MOS/KG (273-304); Total Protein 7.3 G/DL (6.4-8.3)
[2020-01-11] MEDS ORDERED: DEXTROSE 50% 25 GM/50 ML VIAL IV PRN (15:25)
[2020-01-11] MEDS ORDERED: GLUCAGON 1 MG VIAL IM PRN (15:25)
[2020-01-11] MEDS ORDERED: LACTULOSE 20 GM/30 ML UDCUP PO PRN (15:32)
[2020-01-11] MEDS ORDERED: POTASSIUM CHLORIDE 20 MEQ TABLET PO PRN (15:42)
[2020-01-11] MEDS: ENOXAPARIN 30 MG/0.3 ML SYRINGE SUBCUT SCH (16:42)
[2020-01-11] MEDS: SODIUM CHLORIDE 0.9% 1,000 ML IV SCH (16:43)
[2020-01-11] MEDS ORDERED: LACTULOSE 320 GM/480 ML BOTTLE RECTAL ONE (17:00)
[2020-01-11] MEDS: PANTOPRAZOLE 40 MG TABLET PO SCH (21:33)
[2020-01-11] MEDS: POTASSIUM CHLORIDE RIDER 10 MEQ in PREMIX 1 EACH IV PRN ×3 (21:33→23:49)
[2020-01-11] MEDS: ursodioL 300 MG CAPSULE PO SCH (21:33)
[2020-01-11] MEDS: SPIRONOLACTONE 50 MG TABLET PO SCH (21:33)
[2020-01-12] MEDS: POTASSIUM CHLORIDE RIDER 10 MEQ in PREMIX 1 EACH IV PRN ×3 (01:00→22:41)
[2020-01-12] MEDS: SODIUM CHLORIDE 0.9% 1,000 ML IV SCH ×4 (02:18→23:18)
[2020-01-12 06:56] LABS: Basophils % 0.2 % (0.0-0.8); Eosinophils # 0.3 10*3/uL (0.0-0.87); Eosinophils % 5.6 % (0.00-10.9); Hematocrit 24.4 VOL% (35.7-47.0); Hemoglobin 7.8 GM/DL (12.0-16.0); Immature Granulocytes % 0.4 %; Immature Granulocytes Absolute 0.02 #; Lymphocytes # 1.1 10*3/uL (1.4-4.0); Lymphocytes % 23.7 % (21.3-54.2); Mean Corpuscular Volume 98.8 FL (87-102); Mean Platelet Volume 10.1 FL (9.6-12.0); Monocytes % 10.8 % (1.7-12.7); Neutrophils % 59.3 % (38.7-73.9); Platelet Count 158 T/CUMM (130-400); Red Blood Count 2.47 MC/CUMM (3.8-5.5); Red Cell Distribution Width 15.9 % (9.3-17.3); White Blood Count 4.6 T/CUMM (4-12)
[2020-01-12 07:18] LABS: Apearance,Urine CLEAR (Clear); Bilirubin,Urine Negative (Negative); Blood, Urine Negative (Negative); Glucose,Urine (UA) Negative (Negative); Hyaline Casts,Urine 8 /LPF (0-3); Ketones,Urine Negative (Negative); Nitrite,Urine Negative (Negative); Protein,Urine Negative; RBC,Urine <1 /HPF (0-4); Squamous Epithelial Cell,Urine Occasional /HPF (0-10); Urine Color Amber (Yellow); Urine Specific Gravity 1.017 (1.001-1.035); WBC,Urine <1 /HPF (0-6)
[2020-01-12 07:31] LABS: Albumin 1.9 G/DL (3.4-5.0); Calcium 7.8 MG/DL (8.5-10.1); Osmolality,Calculated 288.1 MOS/KG (273-304); Total Protein 6.3 G/DL (6.4-8.3)
[2020-01-12] MEDS ORDERED: LACTULOSE 20 GM/30 ML UDCUP PO SCH (09:00)
[2020-01-12] MEDS ORDERED: LACTULOSE 20 GM/30 ML UDCUP RECTAL SCH (10:06)
[2020-01-12] MEDS ORDERED: LACTULOSE 320 GM/480 ML BOTTLE RECTAL SCH (11:00)
[2020-01-12] MEDS: SPIRONOLACTONE 50 MG TABLET PO SCH ×2 (11:24→22:27)
[2020-01-12] MEDS: FUROSEMIDE 20 MG TABLET PO SCH (11:24)
[2020-01-12] MEDS: ursodioL 300 MG CAPSULE PO SCH ×3 (11:24→22:27)
[2020-01-12] MEDS: PANTOPRAZOLE 40 MG TABLET PO SCH ×2 (11:24→22:28)
[2020-01-12] MEDS: LEVOTHYROXINE 50 MCG TABLET PO SCH (11:25)
[2020-01-12] MEDS: LACTULOSE 320 GM/480 ML BOTTLE RECTAL SCH ×2 (15:39→22:27)
[2020-01-12] MEDS: ENOXAPARIN 30 MG/0.3 ML SYRINGE SUBCUT SCH (17:29)
[2020-01-12] MEDS: OFLOXACIN 0.3% OPH SOLN 5 ML BOTTLE RIGHT EYE SCH (22:28)
[2020-01-12] MEDS: prednisoLONE ACETATE 1% OPH SUSP 5 ML BOTTLE RIGHT EYE SCH (22:28)
[2020-01-12] MEDS: KETOROLAC 0.5% OPH SOLN 5 ML BOTTLE RIGHT EYE SCH (22:28)
[2020-01-13] MEDS: POTASSIUM CHLORIDE RIDER 10 MEQ in PREMIX 1 EACH IV PRN ×3 (00:41→05:14)
[2020-01-13] MEDS: LACTULOSE 320 GM/480 ML BOTTLE RECTAL SCH ×2 (02:34→12:28)
[2020-01-13 07:03] LABS: Basophils % 0.3 % (0.0-0.8); Eosinophils # 0.2 10*3/uL (0.0-0.87); Eosinophils % 2.5 % (0.00-10.9); Hematocrit 22.9 VOL% (35.7-47.0); Hemoglobin 7.1 GM/DL (12.0-16.0); Immature Granulocytes % 0.7 %; Immature Granulocytes Absolute 0.04 #; Lymphocytes # 1.4 10*3/uL (1.4-4.0); Lymphocytes % 22.7 % (21.3-54.2); Mean Corpuscular Volume 100.9 FL (87-102); Mean Platelet Volume 10.3 FL (9.6-12.0); Monocytes % 12.1 % (1.7-12.7); Neutrophils % 61.7 % (38.7-73.9); Platelet Count 138 T/CUMM (130-400); Red Blood Count 2.27 MC/CUMM (3.8-5.5); Red Cell Distribution Width 16.1 % (9.3-17.3)
[2020-01-13 07:30] LABS: Bilirubin,Total 3.7 MG/DL (0.2-1.0); Calcium 7.6 MG/DL (8.5-10.1); Osmolality,Calculated 286.3 MOS/KG (273-304)
[2020-01-13 08:20] LABS: Calcium 7.5 MG/DL (8.5-10.1); Osmolality,Calculated 288.1 MOS/KG (273-304)
[2020-01-13] MEDS: FERROUS SULFATE 325 MG TABLET PO SCH (12:03)
[2020-01-13] MEDS: SPIRONOLACTONE 50 MG TABLET PO SCH ×2 (12:03→20:37)
[2020-01-13] MEDS: PANTOPRAZOLE 40 MG TABLET PO SCH (12:03)
[2020-01-13] MEDS: ASPIRIN EC 81 MG TABLET PO SCH (12:03)
[2020-01-13] MEDS: POTASSIUM CHLORIDE 10 MEQ TABLET PO SCH (12:03)
[2020-01-13] MEDS: ursodioL 300 MG CAPSULE PO SCH ×3 (12:03→20:37)
[2020-01-13] MEDS: FUROSEMIDE 20 MG TABLET PO SCH (12:03)
[2020-01-13] MEDS: LEVOTHYROXINE 50 MCG TABLET PO SCH (12:03)
[2020-01-13] MEDS: prednisoLONE ACETATE 1% OPH SUSP 5 ML BOTTLE RIGHT EYE SCH ×2 (12:04→22:29)
[2020-01-13] MEDS: OFLOXACIN 0.3% OPH SOLN 5 ML BOTTLE RIGHT EYE SCH ×2 (12:04→22:29)
[2020-01-13] MEDS: KETOROLAC 0.5% OPH SOLN 5 ML BOTTLE RIGHT EYE SCH ×2 (12:04→22:28)
[2020-01-13] MEDS: DEXTROSE 5% NACL 0.45% 1,000 ML IV SCH (12:19)
[2020-01-13] MEDS: LACTULOSE 20 GM/30 ML UDCUP PO SCH ×2 (12:20→18:05)
[2020-01-13] MEDS: SODIUM CHLORIDE 0.9% 1,000 ML IV SCH (12:28)
[2020-01-13] MEDS: ENOXAPARIN 30 MG/0.3 ML SYRINGE SUBCUT SCH ×2 (15:31→16:31)
[2020-01-13] MEDS ORDERED: SODIUM CHLORIDE 0.9% 1,000 ML IV PRN (16:13)
[2020-01-13 16:29] LABS: Hemoglobin 7.6 GM/DL (12.0-16.0)
[2020-01-13 16:37] LABS: INR 1.2; PT Patient Result 12.4 SECS (9.8-11.9)
[2020-01-13 16:41] LABS: Calcium 7.6 MG/DL (8.5-10.1); Osmolality,Calculated 286.4 MOS/KG (273-304)
[2020-01-13] MEDS ORDERED: PANTOPRAZOLE INJ 200 MG in SODIUM CHLORIDE 0.9% 250 ML IV SCH (17:00)
[2020-01-13 23:41] LABS: Hematocrit 25.8 VOL% (35.7-47.0); Hemoglobin 8.5 GM/DL (12.0-16.0)
[2020-01-14] MEDS: LACTULOSE 20 GM/30 ML UDCUP PO SCH ×5 (01:52→23:25)
[2020-01-14] MEDS: DEXTROSE 5% NACL 0.45% 1,000 ML IV SCH (04:57)
[2020-01-14 05:59] LABS: Basophils % 0.5 % (0.0-0.8); Eosinophils # 0.2 10*3/uL (0.0-0.87); Eosinophils % 3.2 % (0.00-10.9); Hematocrit 25.8 VOL% (35.7-47.0); Hemoglobin 8.3 GM/DL (12.0-16.0); Immature Granulocytes % 1.2 %; Immature Granulocytes Absolute 0.08 #; Lymphocytes # 1.5 10*3/uL (1.4-4.0); Lymphocytes % 23.6 % (21.3-54.2); Mean Corpuscular HGB Conc 32.2 GM/DL (32-36); Mean Corpuscular Volume 94.9 FL (87-102); Mean Platelet Volume 10.1 FL (9.6-12.0); Monocytes % 12.9 % (1.7-12.7); Neutrophils % 58.6 % (38.7-73.9); Platelet Count 119 T/CUMM (130-400); Red Blood Count 2.72 MC/CUMM (3.8-5.5); Red Cell Distribution Width 17.3 % (9.3-17.3); White Blood Count 6.5 T/CUMM (4-12)
[2020-01-14 06:12] LABS: Calcium 7.6 MG/DL (8.5-10.1); Osmolality,Calculated 281.5 MOS/KG (273-304)
[2020-01-14 06:14] LABS: Albumin 1.9 G/DL (3.4-5.0); Calcium 7.6 MG/DL (8.5-10.1); Osmolality,Calculated 281.5 MOS/KG (273-304); Total Protein 6.1 G/DL (6.4-8.3)
[2020-01-14 06:17] LABS: Hypochromasia Slight
[2020-01-14 06:18] LABS: Anisocytosis 1+; Microcytosis 1+; Platelet Estimate Adequate; Target Cells Slight
[2020-01-14] MEDS: SPIRONOLACTONE 50 MG TABLET PO SCH (08:20)
[2020-01-14] MEDS: ursodioL 300 MG CAPSULE PO SCH ×2 (08:20→14:39)
[2020-01-14] MEDS: ASPIRIN EC 81 MG TABLET PO SCH (08:20)
[2020-01-14] MEDS: FERROUS SULFATE 325 MG TABLET PO SCH (08:20)
[2020-01-14] MEDS: LEVOTHYROXINE 50 MCG TABLET PO SCH (08:21)
[2020-01-14] MEDS: FUROSEMIDE 20 MG TABLET PO SCH (08:21)
[2020-01-14] MEDS: POTASSIUM CHLORIDE 10 MEQ TABLET PO SCH (08:21)
[2020-01-14] MEDS: POTASSIUM CHLORIDE RIDER 10 MEQ in PREMIX 1 EACH IV PRN ×4 (08:30→15:22)
[2020-01-14] MEDS: OFLOXACIN 0.3% OPH SOLN 5 ML BOTTLE RIGHT EYE SCH ×2 (08:31→21:03)
[2020-01-14] MEDS: KETOROLAC 0.5% OPH SOLN 5 ML BOTTLE RIGHT EYE SCH ×2 (08:31→21:03)
[2020-01-14] MEDS: prednisoLONE ACETATE 1% OPH SUSP 5 ML BOTTLE RIGHT EYE SCH ×2 (08:31→21:03)
[2020-01-14 10:28] LABS: Hematocrit 28.4 VOL% (35.7-47.0); Hemoglobin 9.4 GM/DL (12.0-16.0)
[2020-01-14] MEDS: PANTOPRAZOLE 40 MG VIAL IV SCH (21:44)
[2020-01-15] MEDS: SPIRONOLACTONE 50 MG TABLET PO SCH ×3 (01:02→20:13)
[2020-01-15] MEDS: ursodioL 300 MG CAPSULE PO SCH ×4 (01:02→20:13)
[2020-01-15] MEDS: DEXTROSE 5% NACL 0.45% 1,000 ML IV SCH (05:20)
[2020-01-15] MEDS: LACTULOSE 20 GM/30 ML UDCUP PO SCH ×7 (05:20→20:13)
[2020-01-15 06:41] LABS: Basophils # 0.1 10*3/uL (0.0-0.2); Basophils % 0.7 % (0.0-0.8); Eosinophils # 0.3 10*3/uL (0.0-0.87); Eosinophils % 4.2 % (0.00-10.9); Hematocrit 25.9 VOL% (35.7-47.0); Hemoglobin 8.6 GM/DL (12.0-16.0); Immature Granulocytes Absolute 0.15 #; Lymphocytes # 1.5 10*3/uL (1.4-4.0); Lymphocytes % 20.7 % (21.3-54.2); Mean Corpuscular HGB Conc 33.2 GM/DL (32-36); Mean Corpuscular Volume 92.5 FL (87-102); Mean Platelet Volume 10.2 FL (9.6-12.0); Monocytes % 11.2 % (1.7-12.7); Neutrophils % 61.2 % (38.7-73.9); Platelet Count 123 T/CUMM (130-400); Red Cell Distribution Width 17.8 % (9.3-17.3); White Blood Count 7.4 T/CUMM (4-12)
[2020-01-15 07:00] LABS: Calcium 7.8 MG/DL (8.5-10.1); Osmolality,Calculated 277.7 MOS/KG (273-304)
[2020-01-15] MEDS: PANTOPRAZOLE 40 MG VIAL IV SCH ×2 (09:12→20:13)
[2020-01-15] MEDS: OFLOXACIN 0.3% OPH SOLN 5 ML BOTTLE RIGHT EYE SCH ×2 (09:12→23:39)
[2020-01-15] MEDS: prednisoLONE ACETATE 1% OPH SUSP 5 ML BOTTLE RIGHT EYE SCH ×2 (09:12→23:39)
[2020-01-15] MEDS: KETOROLAC 0.5% OPH SOLN 5 ML BOTTLE RIGHT EYE SCH ×2 (09:12→23:39)
[2020-01-15] MEDS: FUROSEMIDE 20 MG TABLET PO SCH (09:13)
[2020-01-15] MEDS: POTASSIUM CHLORIDE 10 MEQ TABLET PO SCH (09:13)
[2020-01-15] MEDS: FERROUS SULFATE 325 MG TABLET PO SCH (09:13)
[2020-01-15] MEDS: ASPIRIN EC 81 MG TABLET PO SCH (09:13)
[2020-01-15] MEDS: LEVOTHYROXINE 50 MCG TABLET PO SCH (09:13)
[2020-01-15] MEDS ORDERED: LACTULOSE 320 GM/480 ML BOTTLE RECTAL ONE (20:35)
[2020-01-15] MEDS: DEXT 5% NACL 0.45% KCL 40 MEQ 40 MEQ/1,000 ML BAG IV SCH (23:38)
[2020-01-16] MEDS: DEXTROSE 5% NACL 0.45% 1,000 ML IV SCH (03:17)
[2020-01-16] MEDS: LACTULOSE 20 GM/30 ML UDCUP PO SCH ×6 (03:18→21:40)
[2020-01-16 05:47] LABS: Basophils % 0.3 % (0.0-0.8); Eosinophils # 0.3 10*3/uL (0.0-0.87); Eosinophils % 3.3 % (0.00-10.9); Hematocrit 24.8 VOL% (35.7-47.0); Hemoglobin 8.1 GM/DL (12.0-16.0); Immature Granulocytes % 1.6 %; Immature Granulocytes Absolute 0.14 #; Lymphocytes # 1.6 10*3/uL (1.4-4.0); Lymphocytes % 17.6 % (21.3-54.2); Mean Corpuscular HGB Conc 32.7 GM/DL (32-36); Mean Corpuscular Volume 93.6 FL (87-102); Mean Platelet Volume 10.3 FL (9.6-12.0); Monocytes % 11.2 % (1.7-12.7); Platelet Count 122 T/CUMM (130-400); Red Blood Count 2.65 MC/CUMM (3.8-5.5); Red Cell Distribution Width 17.6 % (9.3-17.3); White Blood Count 8.9 T/CUMM (4-12)
[2020-01-16 06:14] LABS: Calcium 7.8 MG/DL (8.5-10.1); Osmolality,Calculated 284.1 MOS/KG (273-304)
[2020-01-16] MEDS: ursodioL 300 MG CAPSULE PO SCH ×3 (10:41→21:40)
[2020-01-16] MEDS: FERROUS SULFATE 325 MG TABLET PO SCH (10:41)
[2020-01-16] MEDS: SPIRONOLACTONE 50 MG TABLET PO SCH ×2 (10:41→21:40)
[2020-01-16] MEDS: ASPIRIN EC 81 MG TABLET PO SCH (10:41)
[2020-01-16] MEDS: PANTOPRAZOLE 40 MG VIAL IV SCH ×2 (10:42→21:40)
[2020-01-16] MEDS: LEVOTHYROXINE 50 MCG TABLET PO SCH (10:42)
[2020-01-16] MEDS: POTASSIUM CHLORIDE RIDER 10 MEQ in PREMIX 1 EACH IV PRN ×2 (10:43→12:08)
[2020-01-16] MEDS: prednisoLONE ACETATE 1% OPH SUSP 5 ML BOTTLE RIGHT EYE SCH ×2 (10:48→21:40)
[2020-01-16] MEDS: KETOROLAC 0.5% OPH SOLN 5 ML BOTTLE RIGHT EYE SCH ×2 (10:48→21:39)
[2020-01-16] MEDS: OFLOXACIN 0.3% OPH SOLN 5 ML BOTTLE RIGHT EYE SCH ×2 (10:48→21:39)
[2020-01-16] MEDS: DEXT 5% NACL 0.45% KCL 40 MEQ 40 MEQ/1,000 ML BAG IV SCH ×2 (23:58→23:59)
[2020-01-17] MEDS: LACTULOSE 20 GM/30 ML UDCUP PO SCH ×4 (03:05→21:13)
[2020-01-17 06:35] LABS: Calcium 8.1 MG/DL (8.5-10.1); Osmolality,Calculated 284.1 MOS/KG (273-304)
[2020-01-17 07:46] LABS: Basophils % 0.2 % (0.0-0.8); Eosinophils # 0.3 10*3/uL (0.0-0.87); Hematocrit 24.8 VOL% (35.7-47.0); Hemoglobin 7.7 GM/DL (12.0-16.0); Immature Granulocytes % 0.9 %; Immature Granulocytes Absolute 0.07 #; Lymphocytes # 1.4 10*3/uL (1.4-4.0); Lymphocytes % 17.6 % (21.3-54.2); Mean Corpuscular Volume 99.2 FL (87-102); Mean Platelet Volume 10.5 FL (9.6-12.0); Monocytes % 8.2 % (1.7-12.7); Neutrophils % 69.1 % (38.7-73.9); Platelet Count 112 T/CUMM (130-400); Red Cell Distribution Width 17.9 % (9.3-17.3); White Blood Count 8.1 T/CUMM (4-12)
[2020-01-17] MEDS: PANTOPRAZOLE 40 MG VIAL IV SCH ×2 (08:58→21:13)
[2020-01-17] MEDS: LEVOTHYROXINE 50 MCG TABLET PO SCH (08:59)
[2020-01-17] MEDS: OFLOXACIN 0.3% OPH SOLN 5 ML BOTTLE RIGHT EYE SCH ×2 (08:59→21:12)
[2020-01-17] MEDS: SPIRONOLACTONE 50 MG TABLET PO SCH ×2 (08:59→21:13)
[2020-01-17] MEDS: KETOROLAC 0.5% OPH SOLN 5 ML BOTTLE RIGHT EYE SCH ×2 (08:59→21:11)
[2020-01-17] MEDS: ursodioL 300 MG CAPSULE PO SCH ×3 (08:59→21:11)
[2020-01-17] MEDS: ASPIRIN EC 81 MG TABLET PO SCH (08:59)
[2020-01-17] MEDS: prednisoLONE ACETATE 1% OPH SUSP 5 ML BOTTLE RIGHT EYE SCH ×2 (08:59→21:12)
[2020-01-17] MEDS: FERROUS SULFATE 325 MG TABLET PO SCH (11:51)
[2020-01-17] MEDS: ONDANSETRON 4 MG/2 ML VIAL IV PRN (12:37)
[2020-01-17] MEDS: DEXT 5% NACL 0.45% KCL 40 MEQ 40 MEQ/1,000 ML BAG IV SCH (13:03)
[2020-01-18] MEDS: DEXT 5% NACL 0.45% KCL 40 MEQ 40 MEQ/1,000 ML BAG IV SCH ×2 (02:47→17:20)
[2020-01-18] MEDS: LACTULOSE 20 GM/30 ML UDCUP PO SCH ×3 (03:38→17:21)
[2020-01-18 06:08] LABS: Basophils % 0.4 % (0.0-0.8); Eosinophils # 0.5 10*3/uL (0.0-0.87); Eosinophils % 5.6 % (0.00-10.9); Hematocrit 24.6 VOL% (35.7-47.0); Hemoglobin 7.6 GM/DL (12.0-16.0); Immature Granulocytes Absolute 0.08 #; Lymphocytes # 1.4 10*3/uL (1.4-4.0); Lymphocytes % 17.9 % (21.3-54.2); Mean Corpuscular HGB Conc 30.9 GM/DL (32-36); Mean Platelet Volume 10.8 FL (9.6-12.0); Monocytes % 9.5 % (1.7-12.7); Neutrophils % 65.6 % (38.7-73.9); Platelet Count 112 T/CUMM (130-400); Red Blood Count 2.46 MC/CUMM (3.8-5.5); Red Cell Distribution Width 18.1 % (9.3-17.3)
[2020-01-18 06:28] LABS: INR 1.3
[2020-01-18 06:34] LABS: Albumin 1.9 G/DL (3.4-5.0); Bilirubin,Total 2.2 MG/DL (0.2-1.0); Calcium 7.9 MG/DL (8.5-10.1); Osmolality,Calculated 277.5 MOS/KG (273-304); Total Protein 6.2 G/DL (6.4-8.3)
[2020-01-18] MEDS: prednisoLONE ACETATE 1% OPH SUSP 5 ML BOTTLE RIGHT EYE SCH ×2 (09:17→22:01)
[2020-01-18] MEDS: OFLOXACIN 0.3% OPH SOLN 5 ML BOTTLE RIGHT EYE SCH ×2 (09:17→22:02)
[2020-01-18] MEDS: PANTOPRAZOLE 40 MG VIAL IV SCH ×2 (09:17→22:00)
[2020-01-18] MEDS: KETOROLAC 0.5% OPH SOLN 5 ML BOTTLE RIGHT EYE SCH ×2 (09:17→22:02)
[2020-01-18] MEDS: ursodioL 300 MG CAPSULE PO SCH ×3 (09:18→22:01)
[2020-01-18] MEDS: SPIRONOLACTONE 50 MG TABLET PO SCH ×2 (09:18→22:01)
[2020-01-18] MEDS: FERROUS SULFATE 325 MG TABLET PO SCH (09:18)
[2020-01-18] MEDS: ASPIRIN EC 81 MG TABLET PO SCH (09:18)
[2020-01-18] MEDS: LEVOTHYROXINE 50 MCG TABLET PO SCH (09:18)
[2020-01-18] MEDS: POTASSIUM PHOS/SOD PHOS 250 MG TABLET PO SCH ×3 (11:39→22:01)
[2020-01-18] MEDS: CHOLECALCIFEROL 1,000 UNIT TABLET PO SCH (13:51)
[2020-01-19] MEDS: LACTULOSE 20 GM/30 ML UDCUP PO SCH ×3 (01:36→16:34)
[2020-01-19] MEDS: DEXT 5% NACL 0.45% KCL 40 MEQ 40 MEQ/1,000 ML BAG IV SCH (05:41)
[2020-01-19 06:09] LABS: Basophils % 0.4 % (0.0-0.8); Eosinophils # 0.4 10*3/uL (0.0-0.87); Eosinophils % 3.8 % (0.00-10.9); Hematocrit 23.5 VOL% (35.7-47.0); Hemoglobin 7.4 GM/DL (12.0-16.0); Immature Granulocytes % 0.9 %; Immature Granulocytes Absolute 0.09 #; Lymphocytes # 1.4 10*3/uL (1.4-4.0); Lymphocytes % 14.8 % (21.3-54.2); Mean Corpuscular HGB Conc 31.5 GM/DL (32-36); Mean Corpuscular Volume 100.4 FL (87-102); Mean Platelet Volume 10.6 FL (9.6-12.0); Monocytes % 8.3 % (1.7-12.7); Neutrophils % 71.8 % (38.7-73.9); Platelet Count 118 T/CUMM (130-400); Red Blood Count 2.34 MC/CUMM (3.8-5.5); Red Cell Distribution Width 17.8 % (9.3-17.3); White Blood Count 9.7 T/CUMM (4-12)
[2020-01-19 06:29] LABS: Calcium 7.8 MG/DL (8.5-10.1); Osmolality,Calculated 273.7 MOS/KG (273-304)
[2020-01-19 06:32] LABS: % Iron Saturation 60.2 % (18-50); Ferritin 363.1 ng/ml (8-252)
[2020-01-19 06:40] LABS: Folate 4.4 NG/ML (5.4-24.0); Vitamin B12 1771 PG/ML (211-911)
[2020-01-19 06:48] LABS: Parathyroid Hormone Intact 12.3 PG/ML (18.4-80.1)
[2020-01-19] MEDS ORDERED: SODIUM CHLORIDE 0.9% 1,000 ML IV PRN ×2 (06:53→10:44)
[2020-01-19] MEDS ORDERED: MAGNESIUM SULF RIDER 2 GM in PREMIX 1 EACH IV ONE (06:55)
[2020-01-19] MEDS ORDERED: FUROSEMIDE 20 MG/2 ML VIAL IV SCH ×2 (07:00→13:30)
[2020-01-19 07:18] LABS: Sedimentation Rate-Westergren 118 MM/HR (0-30)
[2020-01-19] MEDS: CHOLECALCIFEROL 1,000 UNIT TABLET PO SCH (08:34)
[2020-01-19] MEDS: ASPIRIN EC 81 MG TABLET PO SCH (08:35)
[2020-01-19] MEDS: ursodioL 300 MG CAPSULE PO SCH ×3 (08:35→21:08)
[2020-01-19] MEDS: LEVOTHYROXINE 50 MCG TABLET PO SCH (08:35)
[2020-01-19] MEDS: FERROUS SULFATE 325 MG TABLET PO SCH (08:35)
[2020-01-19] MEDS: PANTOPRAZOLE 40 MG VIAL IV SCH ×2 (08:35→21:05)
[2020-01-19] MEDS: SPIRONOLACTONE 50 MG TABLET PO SCH ×2 (08:35→21:04)
[2020-01-19] MEDS: POTASSIUM PHOS/SOD PHOS 250 MG TABLET PO SCH ×4 (08:35→21:04)
[2020-01-19] MEDS: OFLOXACIN 0.3% OPH SOLN 5 ML BOTTLE RIGHT EYE SCH ×2 (08:39→21:04)
[2020-01-19] MEDS: prednisoLONE ACETATE 1% OPH SUSP 5 ML BOTTLE RIGHT EYE SCH ×2 (08:39→21:03)
[2020-01-19] MEDS: KETOROLAC 0.5% OPH SOLN 5 ML BOTTLE RIGHT EYE SCH ×2 (08:39→21:04)
[2020-01-19 11:02] LABS: Hemoglobin A1 (Alkaline) 97.4 % (96.5-98.5); Hemoglobin A2 (Alkaline) 2.6 % (1.5-3.5)
[2020-01-19] MEDS: FOLIC ACID 1 MG TABLET PO SCH (12:30)
[2020-01-20] MEDS: LACTULOSE 20 GM/30 ML UDCUP PO SCH (01:42)
[2020-01-20] MEDS: ONDANSETRON 4 MG/2 ML VIAL IV PRN (01:56)
[2020-01-20 05:08] LABS: Basophils # 0.1 10*3/uL (0.0-0.2); Basophils % 0.4 % (0.0-0.8); Eosinophils # 0.2 10*3/uL (0.0-0.87); Eosinophils % 1.7 % (0.00-10.9); Hematocrit 31.9 VOL% (35.7-47.0); Hemoglobin 10.3 GM/DL (12.0-16.0); Immature Granulocytes % 0.9 %; Immature Granulocytes Absolute 0.12 #; Lymphocytes # 1.6 10*3/uL (1.4-4.0); Lymphocytes % 12.3 % (21.3-54.2); Mean Corpuscular HGB Conc 32.3 GM/DL (32-36); Mean Corpuscular Volume 90.6 FL (87-102); Mean Platelet Volume 10.5 FL (9.6-12.0); Monocytes % 7.6 % (1.7-12.7); Neutrophils % 77.1 % (38.7-73.9); Platelet Count 127 T/CUMM (130-400); Red Blood Count 3.52 MC/CUMM (3.8-5.5); Red Cell Distribution Width 21.7 % (9.3-17.3); White Blood Count 12.7 T/CUMM (4-12)
[2020-01-20 05:26] LABS: Calcium 7.8 MG/DL (8.5-10.1); Osmolality,Calculated 274.7 MOS/KG (273-304)
[2020-01-20] MEDS: FERROUS SULFATE 325 MG TABLET PO SCH (08:03)
[2020-01-20] MEDS: LEVOTHYROXINE 50 MCG TABLET PO SCH (08:03)
[2020-01-20] MEDS: ASPIRIN EC 81 MG TABLET PO SCH (08:03)
[2020-01-20] MEDS: SPIRONOLACTONE 50 MG TABLET PO SCH (08:03)
[2020-01-20] MEDS: PANTOPRAZOLE 40 MG VIAL IV SCH (08:03)
[2020-01-20] MEDS: ursodioL 300 MG CAPSULE PO SCH (08:03)
[2020-01-20] MEDS: FOLIC ACID 1 MG TABLET PO SCH (08:03)
[2020-01-20] MEDS: CHOLECALCIFEROL 1,000 UNIT TABLET PO SCH (08:03)
[2020-01-20 11:34] VITALS: BP 110/61
== END 2020-01-20 11:51 | disposition swing bed (61) | DRG 442 ==
LOC: N.ED 12:34 → SUATTDRO 15:03 → N.EDINP 15:03 → N.3E 15:18 → UNDODISIN 01-20 11:25
PROVIDERS: ADMIT Internal Medicine; ATTEND Hospitalist

== ENCOUNTER 2020-02-12 12:18 | Observation (INO) ==
[2020-02-12] MEDS ORDERED: ONDANSETRON ODT 4 MG TABLET PO STA (12:46)
[2020-02-12] MEDS: SODIUM CHLOR 0.9% KCL 40 MEQ 40 MEQ/1,000 ML BAG IV SCH (13:15)
[2020-02-12 13:37] LABS: Basophils % 0.5 % (0.0-0.8); Eosinophils # 0.2 10*3/uL (0.0-0.87); Hematocrit 29.5 VOL% (35.7-47.0); Hemoglobin 9.8 GM/DL (12.0-16.0); Immature Granulocytes % 0.6 %; Immature Granulocytes Absolute 0.05 #; Lymphocytes # 1.4 10*3/uL (1.4-4.0); Lymphocytes % 16.1 % (21.3-54.2); Mean Corpuscular HGB Conc 33.2 GM/DL (32-36); Mean Corpuscular Volume 93.4 FL (87-102); Mean Platelet Volume 9.4 FL (9.6-12.0); Monocytes % 9.3 % (1.7-12.7); Neutrophils % 71.5 % (38.7-73.9); Platelet Count 190 T/CUMM (130-400); Red Blood Count 3.16 MC/CUMM (3.8-5.5); Red Cell Distribution Width 21.1 % (9.3-17.3); White Blood Count 8.4 T/CUMM (4-12)
[2020-02-12 13:46] LABS: PT Patient Result 11.2 SECS (9.8-11.9); Partial Thromboplastin Time 34.7 SECS (23.9-33.8)
[2020-02-12 13:46] LABS: Apearance,Urine CLOUDY (Clear); Bacteria,Urine Moderate /HPF (Few); Bilirubin,Urine Negative (Negative); Blood, Urine Negative (Negative); Glucose,Urine (UA) Negative (Negative); Hyaline Casts,Urine 28 /LPF (0-3); Ketones,Urine Negative (Negative); Mucus,Urine Occasional /LPF (Occasional); Nitrite,Urine Negative (Negative); Protein,Urine Negative; RBC,Urine 1 /HPF (0-4); Squamous Epithelial Cell,Urine Occasional /HPF (0-10); Urine Color Amber (Yellow); Urine Specific Gravity 1.013 (1.001-1.035); WBC,Urine 49 /HPF (0-6)
[2020-02-12 13:58] LABS: Albumin 1.9 G/DL (3.4-5.0); Bilirubin,Total 1.6 MG/DL (0.2-1.0); Calcium 8.1 MG/DL (8.5-10.1); Osmolality,Calculated 267.5 MOS/KG (273-304); Total Protein 7.4 G/DL (6.4-8.3)
[2020-02-12] MEDS ORDERED: POTASSIUM CHLORIDE 20 MEQ TABLET PO STA (14:04)
[2020-02-12] MEDS ORDERED: cefTRIAXone 1,000 MG in SODIUM CHLORIDE 0.9% 100 ML IV STA (14:12)
[2020-02-12] MEDS ORDERED: ONDANSETRON 4 MG/2 ML VIAL IV PRN (14:55)
[2020-02-12] MEDS ORDERED: DOCUSATE SODIUM 100 MG CAPSULE PO PRN (14:55)
[2020-02-12] MEDS ORDERED: LACTULOSE 20 GM/30 ML UDCUP PO PRN (14:55)
[2020-02-12] MEDS ORDERED: diphenhydrAMINE CAP 25 MG CAPSULE PO PRN (14:55)
[2020-02-12] MEDS ORDERED: guaiFENesin/DM ER 600-30 MG TABLET PO PRN (14:55)
[2020-02-12] MEDS ORDERED: BISACODYL 5 MG TABLET PO PRN (14:55)
[2020-02-12] MEDS ORDERED: GLUCAGON 1 MG VIAL IM PRN (14:55)
[2020-02-12] MEDS ORDERED: SIMETHICONE CHEW 125 MG TABLET PO PRN (14:55)
[2020-02-12] MEDS ORDERED: hydrALAZINE 20 MG/1 ML VIAL IV PRN (14:55)
[2020-02-12] MEDS ORDERED: traZODone 50 MG TABLET PO PRN (14:55)
[2020-02-12] MEDS ORDERED: ZALEPLON 5 MG CAPSULE PO PRN (14:55)
[2020-02-12] MEDS ORDERED: ALUMINUM/MAGNES/SIMETH MAX STR 30 ML UDCUP PO PRN (14:55)
[2020-02-12] MEDS ORDERED: DEXTROSE 50% 25 GM/50 ML VIAL IV PRN (14:55)
[2020-02-12] MEDS ORDERED: CALCIUM CARBONATE CHEW 500 MG TABLET PO PRN (14:55)
[2020-02-12] MEDS ORDERED: ONDANSETRON 4 MG TABLET PO PRN (15:21)
[2020-02-12] MEDS ORDERED: HYOSCYAMINE 0.125 MG TABLET PO PRN (15:21)
[2020-02-12] MEDS: ALBUTEROL/IPRATROPIUM 3 ML NEB RESP TX SCH (19:37)
[2020-02-12] MEDS: ALBUTEROL 2.5 MG/3 ML NEB RESP TX SCH (20:16)
[2020-02-12] MEDS: POTASSIUM CHLORIDE 10 MEQ TABLET PO SCH (21:09)
[2020-02-12] MEDS: ursodioL 300 MG CAPSULE PO SCH (21:10)
[2020-02-12] MEDS: SPIRONOLACTONE 50 MG TABLET PO SCH (22:16)
[2020-02-13] MEDS: ALBUTEROL/IPRATROPIUM 3 ML NEB RESP TX SCH ×2 (00:29→07:19)
[2020-02-13] MEDS: ALBUTEROL 2.5 MG/3 ML NEB RESP TX SCH ×2 (03:03→07:19)
[2020-02-13] MEDS: SODIUM CHLOR 0.9% KCL 40 MEQ 40 MEQ/1,000 ML BAG IV SCH ×2 (03:40→12:21)
[2020-02-13 06:25] LABS: Basophils # 0.1 10*3/uL (0.0-0.2); Basophils % 1.1 % (0.0-0.8); Eosinophils # 0.3 10*3/uL (0.0-0.87); Eosinophils % 4.8 % (0.00-10.9); Hematocrit 24.4 VOL% (35.7-47.0); Hemoglobin 8.2 GM/DL (12.0-16.0); Immature Granulocytes % 0.6 %; Immature Granulocytes Absolute 0.04 #; Lymphocytes % 14.4 % (21.3-54.2); Mean Corpuscular HGB Conc 33.6 GM/DL (32-36); Mean Corpuscular Volume 93.1 FL (87-102); Mean Platelet Volume 9.9 FL (9.6-12.0); Monocytes % 11.7 % (1.7-12.7); Neutrophils % 67.4 % (38.7-73.9); Platelet Count 155 T/CUMM (130-400); Red Blood Count 2.62 MC/CUMM (3.8-5.5); Red Cell Distribution Width 21.3 % (9.3-17.3); White Blood Count 6.7 T/CUMM (4-12)
[2020-02-13] MEDS ORDERED: LEVOTHYROXINE 50 MCG TABLET PO SCH (06:30)
[2020-02-13 06:47] LABS: Albumin 1.7 G/DL (3.4-5.0); Bilirubin,Total 1.8 MG/DL (0.2-1.0); Calcium 7.7 MG/DL (8.5-10.1)
[2020-02-13] MEDS ORDERED: DOCUSATE SODIUM 100 MG CAPSULE PO SCH (09:00)
[2020-02-13] MEDS ORDERED: FERROUS SULFATE 325 MG TABLET PO SCH (09:00)
[2020-02-13] MEDS ORDERED: MEGESTROL 400 MG/10 ML UDCUP PO SCH (09:00)
[2020-02-13] MEDS ORDERED: FOLIC ACID 1 MG TABLET PO SCH (09:00)
[2020-02-13] MEDS ORDERED: PANTOPRAZOLE 40 MG TABLET PO SCH (09:00)
[2020-02-13] MEDS ORDERED: POTASSIUM CHLORIDE 20 MEQ TABLET PO SCH (09:00)
[2020-02-13] MEDS ORDERED: ASPIRIN EC 81 MG TABLET PO SCH (09:00)
[2020-02-13] MEDS ORDERED: ASCORBIC ACID 500 MG TABLET PO SCH (09:00)
[2020-02-13] MEDS: SPIRONOLACTONE 50 MG TABLET PO SCH (09:14)
[2020-02-13] MEDS: ursodioL 300 MG CAPSULE PO SCH (09:14)
[2020-02-13] MEDS: POTASSIUM CHLORIDE 10 MEQ TABLET PO SCH (09:14)
[2020-02-13] MEDS ORDERED: MIDODRINE 2.5 MG TABLET PO ONE (10:26)
[2020-02-13] MEDS ORDERED: cefTRIAXone 1,000 MG in SYRINGE 1 EACH IV ONE (10:30)
[2020-02-13 12:27] VITALS: BP 99/55
== END 2020-02-13 12:45 | disposition home or self-care (01) ==
LOC: N.EDINP 12:18 → N.ED 12:18 → N.TELEN 15:26
PROVIDERS: ADMIT Family Medicine; ATTEND Family Medicine

== ENCOUNTER 2020-02-21 21:51 | Inpatient (IN) ==
[2020-02-21 22:29] LABS: Basophils % 0.2 % (0.0-0.8); Eosinophils # 0.1 10*3/uL (0.0-0.87); Eosinophils % 0.7 % (0.00-10.9); Hemoglobin 7.5 GM/DL (12.0-16.0); Immature Granulocytes % 0.7 %; Immature Granulocytes Absolute 0.09 #; Lymphocytes # 0.7 10*3/uL (1.4-4.0); Lymphocytes % 5.4 % (21.3-54.2); Mean Corpuscular HGB Conc 34.1 GM/DL (32-36); Mean Corpuscular Volume 95.2 FL (87-102); Mean Platelet Volume 9.4 FL (9.6-12.0); Monocytes % 2.4 % (1.7-12.7); Neutrophils % 90.6 % (38.7-73.9); Platelet Count 201 T/CUMM (130-400); Red Blood Count 2.31 MC/CUMM (3.8-5.5); Red Cell Distribution Width 21.8 % (9.3-17.3); White Blood Count 12.2 T/CUMM (4-12)
[2020-02-21 22:49] LABS: Alanine Aminotransferase 16 U/L (13-56); Albumin 1.6 G/DL (3.4-5.0); Alkaline Phosphatase 82 U/L (45-117); Aspartate Amino Transferase 28 U/L (0-37); Blood Urea Nitrogen 24 MG/DL (7-18); Calcium 8.4 MG/DL (8.5-10.1); Estimated Glom Filtration Rate 28 ML/MIN; Glucose 111 MG/DL (74-106); Osmolality,Calculated 268.5 MOS/KG (273-304)
[2020-02-21] MEDS ORDERED: cefTRIAXone 1,000 MG in SODIUM CHLORIDE 0.9% 100 ML IV STA (23:11)
[2020-02-21] MEDS ORDERED: SODIUM CHLORIDE 0.9% 1,000 ML IV STA (23:11)
[2020-02-22] MEDS ORDERED: SODIUM CHLORIDE 0.9% 1,000 ML IV STA (00:11)
[2020-02-22 01:08] LABS: Hematocrit 20.3 VOL% (35.7-47.0); Hemoglobin 6.8 GM/DL (12.0-16.0)
[2020-02-22 01:21] LABS: Apearance,Urine Slightly Hazy (Clear); Bilirubin,Urine Negative (Negative); Blood, Urine Negative (Negative); Glucose,Urine (UA) Negative (Negative); Granular Casts,Urine 4 /LPF (0-1); Hyaline Casts,Urine 29 /LPF (0-3); Ketones,Urine 5 mg/dL (Negative); Mucus,Urine Occasional /LPF (Occasional); Nitrite,Urine Negative (Negative); Protein,Urine Negative; RBC,Urine 7 /HPF (0-4); Squamous Epithelial Cell,Urine Occasional /HPF (0-10); Transitional Epi Cells,Urine Occasional /HPF (<1); Urine Color Amber (Yellow); Urine Specific Gravity 1.016 (1.001-1.035); WBC,Urine 3 /HPF (0-6)
[2020-02-22] MEDS ORDERED: ALBUTEROL/IPRATROPIUM 3 ML NEB RESP TX PRN (01:46)
[2020-02-22] MEDS ORDERED: LEVOFLOXACIN INJ 750 MG in PREMIX 1 EACH IV SCH (02:00)
[2020-02-22] MEDS: PHENYLEPHRINE DRIP 40 MG/250 ML PREMIX IV SCH ×3 (02:09→19:37)
[2020-02-22] MEDS: SODIUM CHLORIDE 0.9% 1,000 ML IV SCH ×3 (02:10→17:42)
[2020-02-22] MEDS ORDERED: MORPHINE 4 MG/1 ML VIAL IV PRN (02:34)
[2020-02-22 04:15] LABS: Band Neutrophils 3 % (0-10); Eosinophils 1 % (0-10); Lymphocytes 5 % (20-55); Segmented Neutrophils 91 % (50-85); Total Cells Counted 100
[2020-02-22 04:16] LABS: Hypochromasia 1+; Platelet Estimate Normal; Polychromasia Few
[2020-02-22 04:17] LABS: Basophils % 0.2 % (0.0-0.8); Eosinophils # 0.1 10*3/uL (0.0-0.87); Eosinophils % 0.5 % (0.00-10.9); Hematocrit 22.1 VOL% (35.7-47.0); Hemoglobin 7.3 GM/DL (12.0-16.0); Immature Granulocytes % 0.5 %; Immature Granulocytes Absolute 0.09 #; Lymphocytes # 1.2 10*3/uL (1.4-4.0); Mean Corpuscular Volume 96.9 FL (87-102); Mean Platelet Volume 9.6 FL (9.6-12.0); Monocytes % 4.2 % (1.7-12.7); Neutrophils % 87.6 % (38.7-73.9); Platelet Count 162 T/CUMM (130-400); Red Blood Count 2.28 MC/CUMM (3.8-5.5); Red Cell Distribution Width 22.2 % (9.3-17.3); White Blood Count 17.4 T/CUMM (4-12)
[2020-02-22 04:41] LABS: Hypochromasia 1+
[2020-02-22 04:42] LABS: Microcytosis Slight; Platelet Estimate Adequate
[2020-02-22 04:58] LABS: Albumin 1.4 G/DL (3.4-5.0); Bilirubin,Total 1.9 MG/DL (0.2-1.0); Calcium 7.4 MG/DL (8.5-10.1); Total Protein 5.9 G/DL (6.4-8.3)
[2020-02-22] MEDS: LEVOTHYROXINE 50 MCG TABLET PO SCH (05:48)
[2020-02-22] MEDS ORDERED: MAGNESIUM SULF RIDER 2 GM in PREMIX 1 EACH IV ONE (05:48)
[2020-02-22] MEDS ORDERED: MAGNESIUM SULF RIDER 4 GM in PREMIX 1 EACH IV PRN (05:50)
[2020-02-22] MEDS ORDERED: MAGNESIUM SULF RIDER 2 GM in PREMIX 1 EACH IV PRN (05:50)
[2020-02-22] MEDS: DOCUSATE SODIUM 100 MG CAPSULE PO SCH (09:47)
[2020-02-22] MEDS: MEGESTROL 400 MG/10 ML UDCUP PO SCH (09:47)
[2020-02-22] MEDS: PANTOPRAZOLE 40 MG TABLET PO SCH (09:48)
[2020-02-22] MEDS: FERROUS SULFATE 325 MG TABLET PO SCH (09:48)
[2020-02-22] MEDS: ASPIRIN EC 81 MG TABLET PO SCH (09:48)
[2020-02-22] MEDS: MIDODRINE 2.5 MG TABLET PO SCH ×2 (09:48→17:30)
[2020-02-22] MEDS: FOLIC ACID 1 MG TABLET PO SCH (09:48)
[2020-02-22] MEDS: traMADol 50 MG TABLET PO PRN (19:35)
[2020-02-23] MEDS: PHENYLEPHRINE DRIP 40 MG/250 ML PREMIX IV SCH (03:40)
[2020-02-23] MEDS: SODIUM CHLORIDE 0.9% 1,000 ML IV SCH ×2 (03:42→15:48)
[2020-02-23 04:49] LABS: Basophils # 0.1 10*3/uL (0.0-0.2); Basophils % 0.5 % (0.0-0.8); Eosinophils # 0.6 10*3/uL (0.0-0.87); Hematocrit 23.4 VOL% (35.7-47.0); Hemoglobin 7.5 GM/DL (12.0-16.0); Immature Granulocytes % 0.8 %; Immature Granulocytes Absolute 0.18 #; Lymphocytes # 1.7 10*3/uL (1.4-4.0); Lymphocytes % 8.1 % (21.3-54.2); Mean Corpuscular HGB Conc 32.1 GM/DL (32-36); Mean Corpuscular Volume 98.3 FL (87-102); Mean Platelet Volume 9.7 FL (9.6-12.0); Monocytes % 4.3 % (1.7-12.7); Neutrophils % 83.3 % (38.7-73.9); Platelet Count 186 T/CUMM (130-400); Red Blood Count 2.38 MC/CUMM (3.8-5.5); Red Cell Distribution Width 22.3 % (9.3-17.3); White Blood Count 21.2 T/CUMM (4-12)
[2020-02-23 05:01] LABS: INR 1.1; PT Patient Result 11.5 SECS (9.8-11.9)
[2020-02-23 05:08] LABS: Albumin 1.2 G/DL (3.4-5.0); Calcium 7.5 MG/DL (8.5-10.1); Eosinophils 5 % (0-10); Lymphocytes 8 % (20-55); Osmolality,Calculated 279.4 MOS/KG (273-304); Platelet Estimate Adequate; Segmented Neutrophils 81 % (50-85); Total Cells Counted 100; Total Protein 5.7 G/DL (6.4-8.3)
[2020-02-23 05:09] LABS: Hypochromasia 1+; Microcytosis Slight
[2020-02-23] MEDS: LEVOTHYROXINE 50 MCG TABLET PO SCH (06:17)
[2020-02-23] MEDS: FOLIC ACID 1 MG TABLET PO SCH (08:24)
[2020-02-23] MEDS: MIDODRINE 2.5 MG TABLET PO SCH ×2 (08:24→17:18)
[2020-02-23] MEDS: FERROUS SULFATE 325 MG TABLET PO SCH (08:24)
[2020-02-23] MEDS: PANTOPRAZOLE 40 MG TABLET PO SCH (08:24)
[2020-02-23] MEDS: ASPIRIN EC 81 MG TABLET PO SCH (08:24)
[2020-02-23] MEDS ORDERED: POTASSIUM CHLORIDE 20 MEQ TABLET PO ONE (08:30)
[2020-02-23] MEDS: DOCUSATE SODIUM 100 MG CAPSULE PO SCH (08:31)
[2020-02-23] MEDS: MEGESTROL 400 MG/10 ML UDCUP PO SCH (08:32)
[2020-02-24] MEDS: LEVOTHYROXINE 50 MCG TABLET PO SCH (05:19)
[2020-02-24 06:55] LABS: Basophils # 0.1 10*3/uL (0.0-0.2); Basophils % 0.5 % (0.0-0.8); Eosinophils # 0.6 10*3/uL (0.0-0.87); Eosinophils % 4.9 % (0.00-10.9); Hematocrit 22.5 VOL% (35.7-47.0); Hemoglobin 7.4 GM/DL (12.0-16.0); Immature Granulocytes % 0.7 %; Immature Granulocytes Absolute 0.09 #; Lymphocytes # 1.3 10*3/uL (1.4-4.0); Lymphocytes % 10.6 % (21.3-54.2); Mean Corpuscular HGB Conc 32.9 GM/DL (32-36); Mean Corpuscular Volume 97.4 FL (87-102); Mean Platelet Volume 9.6 FL (9.6-12.0); Monocytes % 4.6 % (1.7-12.7); Neutrophils % 78.7 % (38.7-73.9); Platelet Count 163 T/CUMM (130-400); Red Blood Count 2.31 MC/CUMM (3.8-5.5); Red Cell Distribution Width 22.4 % (9.3-17.3); White Blood Count 12.2 T/CUMM (4-12)
[2020-02-24 07:14] LABS: Hypochromasia 2+; Microcytosis Slight; Platelet Estimate Adequate
[2020-02-24 07:23] LABS: Calcium 8.1 MG/DL (8.5-10.1); Osmolality,Calculated 273.8 MOS/KG (273-304)
[2020-02-24] MEDS: PANTOPRAZOLE 40 MG TABLET PO SCH (08:14)
[2020-02-24] MEDS: FERROUS SULFATE 325 MG TABLET PO SCH (08:15)
[2020-02-24] MEDS: DOCUSATE SODIUM 100 MG CAPSULE PO SCH (08:15)
[2020-02-24] MEDS: MIDODRINE 2.5 MG TABLET PO SCH ×2 (08:15→18:11)
[2020-02-24] MEDS: ASPIRIN EC 81 MG TABLET PO SCH (08:15)
[2020-02-24] MEDS: MEGESTROL 400 MG/10 ML UDCUP PO SCH ×2 (08:15→08:17)
[2020-02-24] MEDS: FOLIC ACID 1 MG TABLET PO SCH (08:15)
[2020-02-24] MEDS: LEVOFLOXACIN INJ 750 MG in PREMIX 1 EACH IV SCH (08:15)
[2020-02-24] MEDS ORDERED: SODIUM CHLORIDE 0.9% 1,000 ML IV PRN (09:46)
[2020-02-24] MEDS: LACTULOSE 20 GM/30 ML UDCUP PO SCH ×5 (11:18→21:11)
[2020-02-24] MEDS: SODIUM BICARBONATE 650 MG TABLET PO SCH ×2 (14:35→21:10)
[2020-02-24 19:06] LABS: Hematocrit 28.8 VOL% (35.7-47.0); Hemoglobin 9.4 GM/DL (12.0-16.0)
[2020-02-24] MEDS: traMADol 50 MG TABLET PO PRN (21:11)
[2020-02-25] MEDS: LEVOTHYROXINE 50 MCG TABLET PO SCH (05:41)
[2020-02-25] MEDS: MIDODRINE 2.5 MG TABLET PO SCH ×2 (08:40→18:10)
[2020-02-25] MEDS: SODIUM BICARBONATE 650 MG TABLET PO SCH ×3 (08:40→21:38)
[2020-02-25] MEDS: FOLIC ACID 1 MG TABLET PO SCH (08:40)
[2020-02-25] MEDS: ASPIRIN EC 81 MG TABLET PO SCH (08:40)
[2020-02-25] MEDS: FERROUS SULFATE 325 MG TABLET PO SCH (08:40)
[2020-02-25] MEDS: MEGESTROL 400 MG/10 ML UDCUP PO SCH ×2 (08:40→08:48)
[2020-02-25] MEDS: DOCUSATE SODIUM 100 MG CAPSULE PO SCH (08:41)
[2020-02-25] MEDS: LEVOFLOXACIN INJ 750 MG in PREMIX 1 EACH IV SCH (08:41)
[2020-02-25] MEDS: HYOSCYAMINE 0.125 MG TABLET PO PRN (08:41)
[2020-02-25] MEDS: LACTULOSE 20 GM/30 ML UDCUP PO SCH ×4 (08:41→21:39)
[2020-02-25] MEDS: PANTOPRAZOLE 40 MG TABLET PO SCH (08:41)
[2020-02-25] MEDS ORDERED: ALPRAZolam 0.25 MG TABLET PO PRN (10:17)
[2020-02-26] MEDS: LEVOTHYROXINE 50 MCG TABLET PO SCH (05:40)
[2020-02-26 06:21] LABS: Basophils # 0.1 10*3/uL (0.0-0.2); Basophils % 0.7 % (0.0-0.8); Eosinophils # 0.4 10*3/uL (0.0-0.87); Hematocrit 27.8 VOL% (35.7-47.0); Hemoglobin 9.3 GM/DL (12.0-16.0); Immature Granulocytes % 0.8 %; Immature Granulocytes Absolute 0.06 #; Lymphocytes # 1.4 10*3/uL (1.4-4.0); Lymphocytes % 18.4 % (21.3-54.2); Mean Corpuscular HGB Conc 33.5 GM/DL (32-36); Mean Corpuscular Volume 94.9 FL (87-102); Mean Platelet Volume 9.3 FL (9.6-12.0); Monocytes % 11.1 % (1.7-12.7); Platelet Count 147 T/CUMM (130-400); Red Blood Count 2.93 MC/CUMM (3.8-5.5); White Blood Count 7.6 T/CUMM (4-12)
[2020-02-26 06:53] LABS: Albumin 1.3 G/DL (3.4-5.0); Calcium 8.6 MG/DL (8.5-10.1); Osmolality,Calculated 272.7 MOS/KG (273-304); Total Protein 6.3 G/DL (6.4-8.3)
[2020-02-26] MEDS: DOCUSATE SODIUM 100 MG CAPSULE PO SCH (08:35)
[2020-02-26] MEDS: FERROUS SULFATE 325 MG TABLET PO SCH (08:35)
[2020-02-26] MEDS: HYOSCYAMINE 0.125 MG TABLET PO PRN (08:35)
[2020-02-26] MEDS: PANTOPRAZOLE 40 MG TABLET PO SCH (08:35)
[2020-02-26] MEDS: SODIUM BICARBONATE 650 MG TABLET PO SCH (08:35)
[2020-02-26] MEDS: MEGESTROL 400 MG/10 ML UDCUP PO SCH (08:35)
[2020-02-26] MEDS: LACTULOSE 20 GM/30 ML UDCUP PO SCH (08:35)
[2020-02-26] MEDS: FOLIC ACID 1 MG TABLET PO SCH (08:35)
[2020-02-26] MEDS: LEVOFLOXACIN INJ 750 MG in PREMIX 1 EACH IV SCH (08:35)
[2020-02-26] MEDS: ASPIRIN EC 81 MG TABLET PO SCH (08:35)
[2020-02-26] MEDS: MIDODRINE 2.5 MG TABLET PO SCH (08:35)
[2020-02-26] MEDS ORDERED: LACTULOSE 20 GM/30 ML UDCUP PO PRN (09:04)
[2020-02-26 11:35] VITALS: BP 100/57
== END 2020-02-26 14:07 | disposition home health service (06) | DRG 871 ==
LOC: N.ED 21:51 → N.EDINP 02-22 01:46 → SUATTDRO 02-22 01:46 → N.ICU 02-22 02:37 → N.3E 02-23 15:10
PROVIDERS: ADMIT Internal Medicine; ATTEND Internal Medicine

== ENCOUNTER 2020-03-08 12:22 | Inpatient (IN) ==
[2020-03-08] MEDS ORDERED: MORPHINE 4 MG/1 ML VIAL IV ONE (13:00)
[2020-03-08] MEDS ORDERED: ONDANSETRON 4 MG/2 ML VIAL IV STA (13:00)
[2020-03-08] MEDS ORDERED: SODIUM CHLORIDE 0.9% 1,000 ML IV STA (13:00)
[2020-03-08 13:35] LABS: Basophils % 0.7 % (0.0-0.8); Eosinophils % 0.5 % (0.00-10.9); Hematocrit 21.7 VOL% (35.7-47.0); Hemoglobin 7.2 GM/DL (12.0-16.0); Immature Granulocytes % 1.3 %; Immature Granulocytes Absolute 0.08 #; Lymphocytes # 1.4 10*3/uL (1.4-4.0); Lymphocytes % 23.3 % (21.3-54.2); Mean Corpuscular HGB Conc 33.2 GM/DL (32-36); Mean Corpuscular Volume 97.3 FL (87-102); Mean Platelet Volume 10.4 FL (9.6-12.0); Monocytes % 11.4 % (1.7-12.7); Neutrophils % 62.8 % (38.7-73.9); Platelet Count 171 T/CUMM (130-400); Red Blood Count 2.23 MC/CUMM (3.8-5.5); White Blood Count 6.1 T/CUMM (4-12)
[2020-03-08 13:48] LABS: Partial Thromboplastin Time 40.9 SECS (23.9-33.8)
[2020-03-08 13:57] LABS: Lymphocytes 19 % (20-55); Segmented Neutrophils 78 % (50-85)
[2020-03-08 13:58] LABS: Total Cells Counted 100
[2020-03-08 14:06] LABS: Albumin 1.2 G/DL (3.4-5.0); Bilirubin,Total 1.6 MG/DL (0.2-1.0); Osmolality,Calculated 284.8 MOS/KG (273-304); Total Protein 5.8 G/DL (6.4-8.3)
[2020-03-08 14:43] LABS: Apearance,Urine CLEAR (Clear); Bacteria,Urine Occasional /HPF (Few); Bilirubin,Urine Negative (Negative); Blood, Urine Negative (Negative); Glucose,Urine (UA) Negative (Negative); Hyaline Casts,Urine 7 /LPF (0-3); Ketones,Urine Negative (Negative); Mucus,Urine Occasional /LPF (Occasional); Nitrite,Urine Negative (Negative); Protein,Urine Negative; Squamous Epithelial Cell,Urine Occasional /HPF (0-10); Urine Color Amber (Yellow); Urine Specific Gravity 1.016 (1.001-1.035)
[2020-03-08] MEDS ORDERED: DEXTROSE 50% 25 GM/50 ML VIAL IV PRN (15:01)
[2020-03-08] MEDS ORDERED: GLUCAGON 1 MG VIAL IM PRN (15:01)
[2020-03-08] MEDS ORDERED: ALPRAZolam 0.25 MG TABLET PO PRN (15:07)
[2020-03-08 15:27] LABS: % Iron Saturation 96.9 % (18-50); Ferritin 886.7 ng/ml (8-252)
[2020-03-08 15:30] LABS: Folate > 24.0 NG/ML (5.4-24.0); Vitamin B12 1119 PG/ML (211-911)
[2020-03-08] MEDS: SODIUM CHLORIDE 0.9% 1,000 ML IV SCH (17:42)
[2020-03-08] MEDS: POLYETHYLENE GLYCOL POWDER 17 GM PACK PO SCH (17:42)
[2020-03-08] MEDS ORDERED: SODIUM CHLORIDE 0.9% 1,000 ML IV PRN (18:08)
[2020-03-08] MEDS: HYOSCYAMINE 0.125 MG TABLET PO PRN (18:24)
[2020-03-08] MEDS: ursodioL 300 MG CAPSULE PO SCH (21:01)
[2020-03-08] MEDS: MIDODRINE 2.5 MG TABLET PO SCH (21:01)
[2020-03-08] MEDS: PANTOPRAZOLE 40 MG VIAL IV SCH (21:02)
[2020-03-09] MEDS: SODIUM CHLORIDE 0.9% 1,000 ML IV SCH ×2 (04:09→07:30)
[2020-03-09] MEDS: LEVOTHYROXINE 50 MCG TABLET PO SCH (05:01)
[2020-03-09 06:20] LABS: Basophils % 0.5 % (0.0-0.8); Eosinophils # 0.1 10*3/uL (0.0-0.87); Hematocrit 23.1 VOL% (35.7-47.0); Hemoglobin 7.7 GM/DL (12.0-16.0); Immature Granulocytes % 1.3 %; Immature Granulocytes Absolute 0.07 #; Lymphocytes # 1.7 10*3/uL (1.4-4.0); Lymphocytes % 30.8 % (21.3-54.2); Mean Corpuscular HGB Conc 33.3 GM/DL (32-36); Mean Corpuscular Volume 95.1 FL (87-102); Mean Platelet Volume 10.3 FL (9.6-12.0); Monocytes % 11.4 % (1.7-12.7); Platelet Count 142 T/CUMM (130-400); Red Blood Count 2.43 MC/CUMM (3.8-5.5); Red Cell Distribution Width 18.7 % (9.3-17.3); White Blood Count 5.6 T/CUMM (4-12)
[2020-03-09 06:44] LABS: Albumin 1.3 G/DL (3.4-5.0); Calcium 8.1 MG/DL (8.5-10.1); Osmolality,Calculated 286.5 MOS/KG (273-304); Total Protein 5.8 G/DL (6.4-8.3)
[2020-03-09] MEDS: LACTATED RINGERS 1,000 ML IV SCH ×2 (07:34→10:28)
[2020-03-09] MEDS ORDERED: FERROUS SULFATE 325 MG TABLET PO SCH (09:00)
[2020-03-09] MEDS ORDERED: ETOMIDATE 20 MG/10 ML VIAL IV ONE (09:00)
[2020-03-09] MEDS ORDERED: LIDOCAINE 2% 5 ML VIAL ONE (09:00)
[2020-03-09] MEDS ORDERED: propofoL 200 MG/20 ML VIAL IV ONE (09:00)
[2020-03-09] MEDS: ursodioL 300 MG CAPSULE PO SCH ×3 (13:45→21:48)
[2020-03-09] MEDS: DOCUSATE SODIUM 100 MG CAPSULE PO SCH (14:03)
[2020-03-09] MEDS: MIDODRINE 2.5 MG TABLET PO SCH ×2 (14:03→21:48)
[2020-03-09] MEDS: CETIRIZINE 10 MG TABLET PO SCH (14:03)
[2020-03-09] MEDS: LACTOBACILLUS RHAMNOSUS GG CAPSULE PO SCH (14:03)
[2020-03-09] MEDS: POLYETHYLENE GLYCOL POWDER 17 GM PACK PO SCH (14:03)
[2020-03-09] MEDS: PANTOPRAZOLE 40 MG VIAL IV SCH ×2 (14:03→21:48)
[2020-03-09] MEDS: NICOTINE 7 MG/24 HR PATCH TRANSDERM SCH (14:04)
[2020-03-09] MEDS: HYOSCYAMINE 0.125 MG TABLET PO PRN (14:06)
[2020-03-10 05:48] LABS: Basophils % 0.5 % (0.0-0.8); Eosinophils # 0.2 10*3/uL (0.0-0.87); Eosinophils % 2.8 % (0.00-10.9); Hematocrit 22.2 VOL% (35.7-47.0); Hemoglobin 7.6 GM/DL (12.0-16.0); Immature Granulocytes % 1.3 %; Immature Granulocytes Absolute 0.08 #; Lymphocytes # 1.4 10*3/uL (1.4-4.0); Lymphocytes % 23.4 % (21.3-54.2); Mean Corpuscular HGB Conc 34.2 GM/DL (32-36); Mean Corpuscular Volume 92.9 FL (87-102); Mean Platelet Volume 10.3 FL (9.6-12.0); Monocytes % 9.5 % (1.7-12.7); Neutrophils % 62.5 % (38.7-73.9); Platelet Count 141 T/CUMM (130-400); Red Blood Count 2.39 MC/CUMM (3.8-5.5); Red Cell Distribution Width 19.5 % (9.3-17.3)
[2020-03-10] MEDS: LEVOTHYROXINE 50 MCG TABLET PO SCH (05:48)
[2020-03-10] MEDS: ONDANSETRON 4 MG/2 ML VIAL IV PRN ×3 (05:54→14:46)
[2020-03-10 06:21] LABS: Albumin 1.2 G/DL (3.4-5.0); Bilirubin,Total 2.5 MG/DL (0.2-1.0); Calcium 7.9 MG/DL (8.5-10.1); Total Protein 5.8 G/DL (6.4-8.3)
[2020-03-10] MEDS: MIDODRINE 2.5 MG TABLET PO SCH ×2 (08:17→21:12)
[2020-03-10] MEDS: SODIUM CHLORIDE 0.9% 1,000 ML IV SCH ×3 (08:17→15:24)
[2020-03-10] MEDS: ursodioL 300 MG CAPSULE PO SCH ×3 (08:17→21:12)
[2020-03-10] MEDS: LACTOBACILLUS RHAMNOSUS GG CAPSULE PO SCH (08:17)
[2020-03-10] MEDS: DOCUSATE SODIUM 100 MG CAPSULE PO SCH (08:17)
[2020-03-10] MEDS: POLYETHYLENE GLYCOL POWDER 17 GM PACK PO SCH (08:17)
[2020-03-10] MEDS: CETIRIZINE 10 MG TABLET PO SCH (08:17)
[2020-03-10] MEDS: PANTOPRAZOLE 40 MG VIAL IV SCH ×2 (08:18→21:12)
[2020-03-10] MEDS: NICOTINE 7 MG/24 HR PATCH TRANSDERM SCH (08:18)
[2020-03-10] MEDS: LACTATED RINGERS 1,000 ML IV SCH (11:38)
[2020-03-10] MEDS ORDERED: PROMETHAZINE INJ 12.5 MG in SODIUM CHLORIDE 0.9% 50 ML IV ONE (11:51)
[2020-03-10] MEDS ORDERED: SODIUM CHLORIDE 0.9% 1,000 ML IV PRN (11:55)
[2020-03-10] MEDS: POTASSIUM CHLORIDE RIDER 10 MEQ in PREMIX 1 EACH IV PRN ×2 (14:16→16:55)
[2020-03-10] MEDS: KETOROLAC 15 MG/1 ML VIAL IV PRN (15:41)
[2020-03-11] MEDS: POTASSIUM CHLORIDE RIDER 10 MEQ in PREMIX 1 EACH IV PRN (00:29)
[2020-03-11] MEDS: LEVOTHYROXINE 50 MCG TABLET PO SCH (06:19)
[2020-03-11 06:29] LABS: Basophils % 0.4 % (0.0-0.8); Eosinophils # 0.3 10*3/uL (0.0-0.87); Eosinophils % 3.6 % (0.00-10.9); Hematocrit 19.6 VOL% (35.7-47.0); Hemoglobin 6.4 GM/DL (12.0-16.0); Immature Granulocytes % 2.4 %; Lymphocytes # 1.5 10*3/uL (1.4-4.0); Lymphocytes % 18.3 % (21.3-54.2); Mean Corpuscular HGB Conc 32.7 GM/DL (32-36); Monocytes % 7.2 % (1.7-12.7); NRBC # 0.06 10*3/uL; Neutrophils % 68.1 % (38.7-73.9); Platelet Count 155 T/CUMM (130-400); Red Blood Count 1.98 MC/CUMM (3.8-5.5); Red Cell Distribution Width 19.4 % (9.3-17.3); White Blood Count 8.4 T/CUMM (4-12)
[2020-03-11 06:56] LABS: Anisocytosis 2+; Band Neutrophils 15 % (0-10); Eosinophils 1 % (0-10); Lymphocytes 14 % (20-55); Macrocytosis 2+; Platelet Estimate Normal; Polychromasia Slight; Segmented Neutrophils 63 % (50-85); Target Cells Few; Total Cells Counted 100
[2020-03-11 06:59] LABS: Albumin 1.2 G/DL (3.4-5.0); Bilirubin,Total 1.8 MG/DL (0.2-1.0); Calcium 7.9 MG/DL (8.5-10.1); Osmolality,Calculated 298.7 MOS/KG (273-304); Total Protein 5.7 G/DL (6.4-8.3)
[2020-03-11] MEDS: SODIUM CHLORIDE 0.9% 1,000 ML IV SCH ×3 (08:42→19:44)
[2020-03-11] MEDS: PANTOPRAZOLE 40 MG VIAL IV SCH ×2 (08:44→20:27)
[2020-03-11] MEDS: ursodioL 300 MG CAPSULE PO SCH ×3 (08:45→20:26)
[2020-03-11] MEDS: POLYETHYLENE GLYCOL POWDER 17 GM PACK PO SCH (08:46)
[2020-03-11] MEDS: DOCUSATE SODIUM 100 MG CAPSULE PO SCH (08:46)
[2020-03-11] MEDS: LACTOBACILLUS RHAMNOSUS GG CAPSULE PO SCH (08:46)
[2020-03-11] MEDS: NICOTINE 7 MG/24 HR PATCH TRANSDERM SCH (08:47)
[2020-03-11] MEDS: MIDODRINE 2.5 MG TABLET PO SCH ×2 (08:48→20:26)
[2020-03-11] MEDS: CETIRIZINE 10 MG TABLET PO SCH (08:48)
[2020-03-11] MEDS ORDERED: SODIUM CHLORIDE 0.9% 1,000 ML IV PRN ×2 (11:36→12:49)
[2020-03-11 13:14] LABS: ABG Base Excess -3.3 MMOL/L (-2.5-2.5); ABG HCO3 21.6 MMOL/L (20-26); ABG Oxygen Saturation 98.2 % (95-100); ABG PH 7.529 (7.35-7.45); ABG PO2 91.8 MM HG (80-95); ABG TCO2 16.8 MMOL/L (23-27)
[2020-03-11 13:22] LABS: Basophils # 0.1 10*3/uL (0.0-0.2); Basophils % 0.5 % (0.0-0.8); Eosinophils # 0.2 10*3/uL (0.0-0.87); Eosinophils % 1.7 % (0.00-10.9); Hemoglobin 8.9 GM/DL (12.0-16.0); Immature Granulocytes % 1.9 %; Immature Granulocytes Absolute 0.18 #; Lymphocytes # 1.7 10*3/uL (1.4-4.0); Mean Corpuscular HGB Conc 34.2 GM/DL (32-36); Mean Corpuscular Volume 94.2 FL (87-102); Mean Platelet Volume 10.5 FL (9.6-12.0); Monocytes % 7.2 % (1.7-12.7); NRBC # 0.06 10*3/uL; Neutrophils % 70.7 % (38.7-73.9); Platelet Count 181 T/CUMM (130-400); Red Blood Count 2.76 MC/CUMM (3.8-5.5); Red Cell Distribution Width 17.5 % (9.3-17.3); White Blood Count 9.5 T/CUMM (4-12)
[2020-03-11 13:33] LABS: PT Patient Result 10.9 SECS (9.8-11.9)
[2020-03-11 13:36] LABS: Albumin 1.4 G/DL (3.4-5.0); Calcium 8.1 MG/DL (8.5-10.1); Osmolality,Calculated 298.7 MOS/KG (273-304); Total Protein 6.2 G/DL (6.4-8.3)
[2020-03-11] MEDS: LACTATED RINGERS 1,000 ML IV SCH (13:54)
[2020-03-11] MEDS: LACTULOSE 320 GM/480 ML BOTTLE RECTAL SCH ×2 (16:47→18:50)
[2020-03-11 23:41] LABS: Hematocrit 29.6 VOL% (35.7-47.0); Hemoglobin 10.1 GM/DL (12.0-16.0)
[2020-03-12] MEDS: LACTULOSE 320 GM/480 ML BOTTLE RECTAL SCH ×5 (01:36→21:36)
[2020-03-12] MEDS: LEVOTHYROXINE 50 MCG TABLET PO SCH (05:24)
[2020-03-12] MEDS: SODIUM CHLORIDE 0.9% 1,000 ML IV SCH ×2 (05:24→15:34)
[2020-03-12 08:47] LABS: Basophils % 0.3 % (0.0-0.8); Eosinophils # 0.1 10*3/uL (0.0-0.87); Eosinophils % 0.5 % (0.00-10.9); Hematocrit 29.2 VOL% (35.7-47.0); Hemoglobin 10.1 GM/DL (12.0-16.0); Immature Granulocytes % 1.2 %; Immature Granulocytes Absolute 0.17 #; Lymphocytes # 1.2 10*3/uL (1.4-4.0); Lymphocytes % 7.9 % (21.3-54.2); Mean Corpuscular HGB Conc 34.6 GM/DL (32-36); Mean Corpuscular Volume 92.1 FL (87-102); Mean Platelet Volume 10.5 FL (9.6-12.0); Monocytes % 3.8 % (1.7-12.7); NRBC # 0.04 10*3/uL; Neutrophils % 86.3 % (38.7-73.9); Platelet Count 152 T/CUMM (130-400); Red Blood Count 3.17 MC/CUMM (3.8-5.5); Red Cell Distribution Width 18.3 % (9.3-17.3); White Blood Count 14.5 T/CUMM (4-12)
[2020-03-12] MEDS: LACTATED RINGERS 1,000 ML IV SCH (08:58)
[2020-03-12 09:07] LABS: Calcium 8.3 MG/DL (8.5-10.1); Osmolality,Calculated 304.4 MOS/KG (273-304)
[2020-03-12] MEDS: ursodioL 300 MG CAPSULE PO SCH ×3 (09:17→21:36)
[2020-03-12] MEDS: LACTOBACILLUS RHAMNOSUS GG CAPSULE PO SCH (09:17)
[2020-03-12] MEDS: DOCUSATE SODIUM 100 MG CAPSULE PO SCH (09:17)
[2020-03-12] MEDS: POLYETHYLENE GLYCOL POWDER 17 GM PACK PO SCH (09:18)
[2020-03-12] MEDS: MIDODRINE 2.5 MG TABLET PO SCH ×2 (09:19→21:36)
[2020-03-12] MEDS: CETIRIZINE 10 MG TABLET PO SCH (09:19)
[2020-03-12] MEDS: PANTOPRAZOLE 40 MG VIAL IV SCH ×2 (09:55→21:36)
[2020-03-12] MEDS: NICOTINE 7 MG/24 HR PATCH TRANSDERM SCH (10:08)
[2020-03-12] MEDS: KETOROLAC 15 MG/1 ML VIAL IV PRN (11:55)
[2020-03-12] MEDS ORDERED: LACTULOSE 20 GM/30 ML UDCUP PO SCH (14:00)
[2020-03-13] MEDS: SODIUM CHLORIDE 0.9% 1,000 ML IV SCH (01:58)
[2020-03-13] MEDS: LACTULOSE 320 GM/480 ML BOTTLE RECTAL SCH ×6 (01:58→22:57)
[2020-03-13] MEDS: LEVOTHYROXINE 50 MCG TABLET PO SCH (06:10)
[2020-03-13 06:26] LABS: Basophils % 0.2 % (0.0-0.8); Eosinophils # 0.1 10*3/uL (0.0-0.87); Eosinophils % 0.3 % (0.00-10.9); Hematocrit 28.4 VOL% (35.7-47.0); Hemoglobin 9.5 GM/DL (12.0-16.0); Immature Granulocytes % 1.5 %; Lymphocytes # 1.2 10*3/uL (1.4-4.0); Lymphocytes % 6.2 % (21.3-54.2); Mean Corpuscular HGB Conc 33.5 GM/DL (32-36); Mean Corpuscular Volume 96.9 FL (87-102); Mean Platelet Volume 10.5 FL (9.6-12.0); Monocytes % 3.3 % (1.7-12.7); NRBC # 0.07 10*3/uL; Neutrophils % 88.5 % (38.7-73.9); Platelet Count 175 T/CUMM (130-400); Red Blood Count 2.93 MC/CUMM (3.8-5.5); White Blood Count 19.8 T/CUMM (4-12)
[2020-03-13 06:57] LABS: Calcium 8.5 MG/DL (8.5-10.1)
[2020-03-13] MEDS: LACTATED RINGERS 1,000 ML IV SCH (08:36)
[2020-03-13] MEDS: PANTOPRAZOLE 40 MG VIAL IV SCH ×2 (09:26→21:00)
[2020-03-13] MEDS: DEXTROSE 5% NACL 0.45% 1,000 ML IV SCH ×3 (09:27→21:07)
[2020-03-13] MEDS ORDERED: MORPHINE 4 MG/1 ML VIAL IV ONE (09:31)
[2020-03-13] MEDS: LACTOBACILLUS RHAMNOSUS GG CAPSULE PO SCH (09:35)
[2020-03-13] MEDS: DOCUSATE SODIUM 100 MG CAPSULE PO SCH (09:35)
[2020-03-13] MEDS: ursodioL 300 MG CAPSULE PO SCH ×3 (09:35→21:05)
[2020-03-13] MEDS: MIDODRINE 2.5 MG TABLET PO SCH ×2 (09:36→21:05)
[2020-03-13] MEDS: POLYETHYLENE GLYCOL POWDER 17 GM PACK PO SCH (09:36)
[2020-03-13] MEDS: NICOTINE 7 MG/24 HR PATCH TRANSDERM SCH (09:36)
[2020-03-13] MEDS: CETIRIZINE 10 MG TABLET PO SCH (09:36)
[2020-03-13] MEDS: ONDANSETRON 4 MG/2 ML VIAL IV PRN (09:37)
[2020-03-13 09:54] LABS: Anisocytosis 2+; Band Neutrophils 4 % (0-10); Eosinophils 1 % (0-10); Lymphocytes 6 % (20-55); Macrocytosis 2+; Platelet Estimate Normal; Polychromasia Few; Segmented Neutrophils 86 % (50-85); Total Cells Counted 100
[2020-03-13] MEDS ORDERED: LORazepam 2 MG/1 ML VIAL IV ONE (11:16)
[2020-03-13] MEDS ORDERED: LORazepam 2 MG/1 ML VIAL IV PRN (14:59)
[2020-03-13] MEDS ORDERED: MORPHINE 4 MG/1 ML VIAL IV PRN (15:01)
[2020-03-14] MEDS: LACTULOSE 320 GM/480 ML BOTTLE RECTAL SCH ×3 (02:57→09:45)
[2020-03-14] MEDS: LEVOTHYROXINE 50 MCG TABLET PO SCH (05:09)
[2020-03-14] MEDS: DEXTROSE 5% NACL 0.45% 1,000 ML IV SCH ×3 (06:27→16:58)
[2020-03-14 06:42] LABS: Basophils # 0.1 10*3/uL (0.0-0.2); Basophils % 0.3 % (0.0-0.8); Eosinophils # 0.4 10*3/uL (0.0-0.87); Eosinophils % 2.7 % (0.00-10.9); Hematocrit 28.3 VOL% (35.7-47.0); Hemoglobin 9.3 GM/DL (12.0-16.0); Immature Granulocytes % 1.9 %; Immature Granulocytes Absolute 0.27 #; Lymphocytes % 7.3 % (21.3-54.2); Mean Corpuscular HGB Conc 32.9 GM/DL (32-36); Mean Corpuscular Volume 98.3 FL (87-102); Mean Platelet Volume 10.3 FL (9.6-12.0); Monocytes % 2.9 % (1.7-12.7); NRBC # 0.03 10*3/uL; Neutrophils % 84.9 % (38.7-73.9); Platelet Count 151 T/CUMM (130-400); Red Blood Count 2.88 MC/CUMM (3.8-5.5); Red Cell Distribution Width 20.2 % (9.3-17.3); White Blood Count 14.3 T/CUMM (4-12)
[2020-03-14 06:55] LABS: Calcium 8.2 MG/DL (8.5-10.1); Osmolality,Calculated 313.1 MOS/KG (273-304)
[2020-03-14 07:02] LABS: Albumin 1.1 G/DL (3.4-5.0); Bilirubin,Direct 1.58 MG/DL (0.0-0.20); Bilirubin,Indirect 1.2 MG/DL (0.0-1.0); Bilirubin,Total 2.8 MG/DL (0.2-1.0); Total Protein 6.1 G/DL (6.4-8.3)
[2020-03-14] MEDS: PANTOPRAZOLE 40 MG VIAL IV SCH (08:15)
[2020-03-14] MEDS: POTASSIUM CHLORIDE RIDER 10 MEQ in PREMIX 1 EACH IV PRN ×3 (08:17→10:49)
[2020-03-14] MEDS: CETIRIZINE 10 MG TABLET PO SCH (08:22)
[2020-03-14] MEDS: LACTOBACILLUS RHAMNOSUS GG CAPSULE PO SCH (08:22)
[2020-03-14] MEDS: POLYETHYLENE GLYCOL POWDER 17 GM PACK PO SCH (08:22)
[2020-03-14] MEDS: NICOTINE 7 MG/24 HR PATCH TRANSDERM SCH (08:22)
[2020-03-14] MEDS: ursodioL 300 MG CAPSULE PO SCH ×2 (08:22→14:48)
[2020-03-14] MEDS: MIDODRINE 2.5 MG TABLET PO SCH (08:22)
[2020-03-14] MEDS: DOCUSATE SODIUM 100 MG CAPSULE PO SCH (08:22)
[2020-03-14] MEDS ORDERED: LORazepam 2 MG/1 ML VIAL IV PRN ×2 (11:09→16:14)
[2020-03-14] MEDS ORDERED: LACTULOSE 320 GM/480 ML BOTTLE RECTAL SCH (21:00)
[2020-03-15] MEDS: DEXTROSE 5% NACL 0.45% 1,000 ML IV SCH ×2 (03:22→14:08)
[2020-03-15] MEDS: MORPHINE 4 MG/1 ML VIAL IV PRN (10:37)
[2020-03-15] MEDS: THIAMINE 100 MG TABLET PO SCH (17:11)
[2020-03-16] MEDS: MORPHINE 4 MG/1 ML VIAL IV PRN ×3 (00:22→21:49)
[2020-03-16 05:19] LABS: Basophils # 0.1 10*3/uL (0.0-0.2); Basophils % 0.6 % (0.0-0.8); Eosinophils # 0.3 10*3/uL (0.0-0.87); Eosinophils % 3.4 % (0.00-10.9); Hemoglobin 9.9 GM/DL (12.0-16.0); Immature Granulocytes % 1.8 %; Immature Granulocytes Absolute 0.16 #; Lymphocytes # 1.6 10*3/uL (1.4-4.0); Lymphocytes % 18.1 % (21.3-54.2); Mean Platelet Volume 10.7 FL (9.6-12.0); Monocytes % 5.6 % (1.7-12.7); NRBC # 0.02 10*3/uL; Neutrophils % 70.5 % (38.7-73.9); Platelet Count 74 T/CUMM (130-400); Red Blood Count 3.06 MC/CUMM (3.8-5.5); White Blood Count 8.8 T/CUMM (4-12)
[2020-03-16 05:25] LABS: INR 1.1; PT Patient Result 11.9 SECS (9.8-11.9)
[2020-03-16 05:43] LABS: Hypochromasia 1+; Platelet Estimate Decreased; Target Cells Few
[2020-03-16 05:49] LABS: Calcium 7.8 MG/DL (8.5-10.1); Osmolality,Calculated 305.3 MOS/KG (273-304)
[2020-03-16 05:54] LABS: Bilirubin,Total 2.2 MG/DL (0.2-1.0); Calcium 7.9 MG/DL (8.5-10.1); Total Protein 5.7 G/DL (6.4-8.3)
[2020-03-16] MEDS: DEXTROSE 5% NACL 0.45% 1,000 ML IV SCH (07:19)
[2020-03-16] MEDS: THIAMINE 100 MG TABLET PO SCH (08:16)
[2020-03-16] MEDS ORDERED: DEXTROSE 5% 1,000 ML IV SCH (08:30)
[2020-03-16] MEDS ORDERED: MULTIVITAMIN LIQUID (CENTRUM) 60 ML BOTTLE PO SCH (09:00)
[2020-03-16] MEDS ORDERED: FUROSEMIDE 40 MG TABLET PO ONE (10:31)
[2020-03-16] MEDS ORDERED: FUROSEMIDE 40 MG/4 ML VIAL IV ONE (10:33)
[2020-03-17 03:38] LABS: Basophils % 0.3 % (0.0-0.8); Eosinophils % 0.1 % (0.00-10.9); Hematocrit 29.8 VOL% (35.7-47.0); Hemoglobin 9.3 GM/DL (12.0-16.0); Immature Granulocytes % 2.6 %; Immature Granulocytes Absolute 0.28 #; Lymphocytes # 0.8 10*3/uL (1.4-4.0); Lymphocytes % 7.2 % (21.3-54.2); Mean Corpuscular HGB Conc 31.2 GM/DL (32-36); Mean Corpuscular Volume 104.6 FL (87-102); Mean Platelet Volume 12.1 FL (9.6-12.0); Monocytes % 3.7 % (1.7-12.7); NRBC # 0.12 10*3/uL; Neutrophils % 86.1 % (38.7-73.9); Platelet Count 81 T/CUMM (130-400); Red Blood Count 2.85 MC/CUMM (3.8-5.5); Red Cell Distribution Width 20.4 % (9.3-17.3); White Blood Count 10.6 T/CUMM (4-12)
[2020-03-17 03:48] LABS: INR 1.3
[2020-03-17 04:03] LABS: Calcium 7.9 MG/DL (8.5-10.1); Osmolality,Calculated 301.6 MOS/KG (273-304)
[2020-03-17 04:07] LABS: Albumin 0.9 G/DL (3.4-5.0); Bilirubin,Total 2.7 MG/DL (0.2-1.0); Calcium 8.2 MG/DL (8.5-10.1); Osmolality,Calculated 297.7 MOS/KG (273-304); Total Protein 5.4 G/DL (6.4-8.3)
[2020-03-17 04:34] LABS: Band Neutrophils 4 % (0-10); Hypochromasia 1+; Lymphocytes 8 % (20-55); Microcytosis Slight; Nucleated Red Blood Cells 2 (0-5); Platelet Estimate Decreased; Segmented Neutrophils 84 % (50-85); Total Cells Counted 100
[2020-03-17] MEDS ORDERED: DEXTROSE 50% 25 GM/50 ML VIAL IV ONE (07:38)
[2020-03-17] MEDS ORDERED: DEXTROSE 50% 25 GM/50 ML VIAL IV PRN (07:41)
[2020-03-17] MEDS: MORPHINE 4 MG/1 ML VIAL IV PRN (08:52)
[2020-03-17 10:12] VITALS: BP 50/25
== END 2020-03-17 10:53 | disposition expired | DRG 377 ==
LOC: EDBD → EDUNIT# → N.ED 12:22 → SUATTDRO 15:01 → N.3E 15:01 → N.2E 03-11 15:23
PROVIDERS: ADMIT Internal Medicine; ATTEND Internal Medicine